=== PATIENT | female | born 1935 | race Caucasian/White ===

== ENCOUNTER → 2017-07-21 06:00 | Outpatient (REF) | payer MEDICARE, SELFPAY | LOC: OLS.WHLTSB 06:00 | PROVIDERS: Visit Provider Family Medicine | DX: Z79.01 Long term (current) use of anticoagulants (principal) ==

== ENCOUNTER → 2017-08-18 05:00 | Outpatient (REF) | payer MEDICARE, OTHER, SELFPAY ==
[2017-08-18 09:37] LABS: Hematocrit 40.9 % (37-47); Hemoglobin 12.9 g/dl (12.0-15.0); Mean Corp Hgb Conc 31.5 g/gl (32-36); Mean Corpuscular Hgb 28.6 pg (27.0-32.0); Mean Corpuscular Volume 90.7 fL (81-99); Mean Platelet Vol. 10.6 fl (6.2-12.0); Platelet Count 162 K/mm3 (150-450); RBC Distribution Width CV 15.5 % (11.6-14.6); RBC Distribution Width SD 51.2 fl (35.1-43.9); Red Blood Count 4.51 M/mm3 (4.2-5.4); White Blood Count 5.5 K/mm3 (4.4-11.0)
[2017-08-18 09:38] LABS: Scan Indicated on CBC? Y/N NO
[2017-08-18 09:39] LABS: Anion Gap 6 (5-15); BUN 17 mg/dL (7-18); BUN/Creat Ratio 27.5 RATIO (10-20); Calcium,Total 8.7 mg/dL (8.5-10.1); Chloride 106 mmol/L (98-107); Creatinine, Serum 0.62 mg/dL (0.55-1.02); EST Glomerular Filtration Rate 98 mL/min (>60); Est Glom Filt Rate - Afr Amer 119 mL/min (>60); Glucose 90 mg/dL (70-110); Potassium 3.9 mmol/L (3.5-5.1); Sodium Level 141 mmol/L (136-145)
[2017-08-18 09:47] LABS: Prothrombin Time (Protime)PT. 34.2 SECONDS (11.7-14.9)
[2017-08-18 10:04] LABS: International Normalized Ratio 3.6
== END ==
LOC: OLS.WHLTSB 05:00
PROVIDERS: Visit Provider Family Medicine
DX: I25.10 Atherosclerotic heart disease of native coronary artery without angina pectoris (principal); I10 Essential (primary) hypertension; Z79.01 Long term (current) use of anticoagulants
CPT/HCPCS: 36415; 80048; 85027; 85610

== ENCOUNTER → 2017-09-06 18:00 | Outpatient (REF) | payer MEDICARE, SELFPAY ==
[2017-09-07 09:52] LABS: Mucous, Urine 0 SEEN /hpf (<or=2+)
[2017-09-07 10:15] LABS: Color, Urine Yellow (Yellow); Glucose, Dipstick Normal (Normal); Ketone-Dipstick Negative (Negative); Leukocyte Esterase-Dipstick 500 /ul (Negative); Nitrite-Dipstick Positive (Negative); Occult Blood-Urine 150 /ul (Negative); Protein-Dipstick 15 mg/dl (Negative); Urine Bilirubin Dipstick Negative (Negative); Urine Clarity Sl. Cloudy (Clear); Urine Urobilinogen Normal (Normal); Urine pH 6.5 (5.0 - 8.0)
[2017-09-07 10:23] LABS: Bacteria 2+ /hpf (None Seen); Red Blood Cells-Urine 10-25 SEEN /hpf (0-5); Squamous Epithelial Cells - UA 5-10 SEEN /hpf (5-10); White Blood Cells 25-50 SEEN /hpf (0-5)
== END ==
LOC: OLS.WHLTSB 18:00
PROVIDERS: Visit Provider Family Medicine
DX: N39.0 Urinary tract infection, site not specified (principal)
CPT/HCPCS: 81001; 87086; 87088; 87186

== ENCOUNTER → 2017-09-13 05:00 | Outpatient (REF) | payer MEDICARE, SELFPAY ==
[2017-09-13 09:08] LABS: International Normalized Ratio 2.6
== END ==
LOC: OLS.WHLTSB 05:00
PROVIDERS: Visit Provider Family Medicine
DX: Z79.01 Long term (current) use of anticoagulants (principal)
CPT/HCPCS: 36415; 85610

== ENCOUNTER → 2017-09-15 05:00 | Outpatient (REF) | payer MEDICARE, SELFPAY ==
[2017-09-15 09:22] LABS: International Normalized Ratio 2.5; Prothrombin Time (Protime)PT. 26.4 SECONDS (11.7-14.9)
== END ==
LOC: OLS.WHLTSB 05:00
PROVIDERS: Visit Provider Family Medicine
DX: Z79.01 Long term (current) use of anticoagulants (principal)
CPT/HCPCS: 36415; 85610

== ENCOUNTER → 2017-10-05 07:00 | Outpatient (REF) | payer MEDICARE, SELFPAY ==
[2017-10-05 09:38] LABS: Color, Urine Yellow (Yellow); Glucose, Dipstick Normal (Normal); Ketone-Dipstick 5 mg/dl (Negative); Leukocyte Esterase-Dipstick 500 /ul (Negative); Nitrite-Dipstick Positive (Negative); Occult Blood-Urine 50 /ul (Negative); Protein-Dipstick 15 mg/dl (Negative); Specific Gravity, Urine 1.025 (1.002-1.030); Urine Bilirubin Dipstick Negative (Negative); Urine Clarity Sl. Cloudy (Clear); Urine Urobilinogen 1 mg/dl (Normal)
== END ==
LOC: OLS.WHLTSB 07:00
PROVIDERS: Visit Provider Family Medicine
DX: R30.0 Dysuria (principal)
CPT/HCPCS: 81002; 87077; 87086; 87088; 87186

== ENCOUNTER → 2017-10-11 05:00 | Outpatient (REF) | payer MEDICARE, SELFPAY ==
[2017-10-11 09:03] LABS: International Normalized Ratio 2.7; Prothrombin Time (Protime)PT. 27.4 SECONDS (11.7-14.9)
== END ==
LOC: OLS.WHLTSB 05:00
PROVIDERS: Visit Provider Family Medicine
DX: Z79.01 Long term (current) use of anticoagulants (principal); Z79.2 Long term (current) use of antibiotics
CPT/HCPCS: 36415; 85610

== ENCOUNTER → 2017-10-13 05:00 | Outpatient (REF) | payer MEDICARE, SELFPAY ==
[2017-10-13 10:35] LABS: International Normalized Ratio 2.5; Prothrombin Time (Protime)PT. 25.7 SECONDS (11.7-14.9)
== END ==
LOC: OLS.WHLTSB 05:00
PROVIDERS: Visit Provider Family Medicine
DX: Z79.01 Long term (current) use of anticoagulants (principal)
CPT/HCPCS: 36415; 85610

== ENCOUNTER → 2017-11-10 05:00 | Outpatient (REF) | payer MEDICARE, SELFPAY ==
[2017-11-10 08:39] LABS: Hematocrit 37.2 % (37-47); Mean Corp Hgb Conc 32.3 g/gl (32-36); Mean Corpuscular Hgb 29.5 pg (27.0-32.0); Mean Corpuscular Volume 91.4 fL (81-99); Mean Platelet Vol. 11.1 fl (6.2-12.0); Platelet Count 140 K/mm3 (150-450); RBC Distribution Width CV 14.9 % (11.6-14.6); RBC Distribution Width SD 49.1 fl (35.1-43.9); Red Blood Count 4.07 M/mm3 (4.2-5.4); White Blood Count 5.2 K/mm3 (4.4-11.0)
[2017-11-10 08:42] LABS: Scan Indicated on CBC? Y/N NO
[2017-11-10 08:48] LABS: Anion Gap 6 (5-15); BUN 13 mg/dL (7-18); BUN/Creat Ratio 18.8 RATIO (10-20); Calcium,Total 8.9 mg/dL (8.5-10.1); Chloride 106 mmol/L (98-107); Creatinine, Serum 0.69 mg/dL (0.55-1.02); EST Glomerular Filtration Rate 86 mL/min (>60); Est Glom Filt Rate - Afr Amer 105 mL/min (>60); Glucose 88 mg/dL (74-106); Potassium 4.1 mmol/L (3.5-5.1); Sodium Level 142 mmol/L (136-145)
[2017-11-10 08:57] LABS: International Normalized Ratio 2.7; Prothrombin Time (Protime)PT. 28.7 SECONDS (11.7-14.9)
== END ==
LOC: OLS.WHLTSB 05:00
PROVIDERS: Visit Provider Family Medicine
DX: I25.10 Atherosclerotic heart disease of native coronary artery without angina pectoris (principal); I10 Essential (primary) hypertension; Z79.01 Long term (current) use of anticoagulants
CPT/HCPCS: 36415; 80048; 85027; 85610

== ENCOUNTER → 2017-12-08 05:00 | Outpatient (REF) | payer MEDICARE, SELFPAY ==
[2017-12-08 08:17] LABS: International Normalized Ratio 2.2; Prothrombin Time (Protime)PT. 24.4 SECONDS (11.7-14.9)
== END ==
LOC: OLS.WHLTSB 05:00
PROVIDERS: Visit Provider Family Medicine
DX: Z79.01 Long term (current) use of anticoagulants (principal); Z95.828 Presence of other vascular implants and grafts
CPT/HCPCS: 36415; 85610

== ENCOUNTER → 2018-01-05 05:00 | Outpatient (REF) | payer MEDICARE, SELFPAY ==
[2018-01-05 08:21] LABS: International Normalized Ratio 2.3
== END ==
LOC: OLS.WHLTSB 05:00
PROVIDERS: Visit Provider Family Medicine
DX: Z79.01 Long term (current) use of anticoagulants (principal)
CPT/HCPCS: 36415; 85610

== ENCOUNTER → 2018-02-02 05:50 | Outpatient (REF) | payer MEDICARE, SELFPAY ==
[2018-02-02 08:03] LABS: Hematocrit 38.3 % (37-47); Mean Corp Hgb Conc 31.3 g/gl (32-36); Mean Corpuscular Hgb 28.8 pg (27.0-32.0); Mean Corpuscular Volume 91.8 fL (81-99); Mean Platelet Vol. 10.8 fl (6.2-12.0); Platelet Count 142 K/mm3 (150-450); RBC Distribution Width CV 15.5 % (11.6-14.6); Red Blood Count 4.17 M/mm3 (4.2-5.4); White Blood Count 5.7 K/mm3 (4.4-11.0)
[2018-02-02 08:14] LABS: Anion Gap 6 (5-15); BUN 15 mg/dL (7-18); BUN/Creat Ratio 21.7 RATIO (10-20); Calcium,Total 8.9 mg/dL (8.5-10.1); Chloride 107 mmol/L (98-107); Creatinine, Serum 0.69 mg/dL (0.55-1.02); EST Glomerular Filtration Rate 87 mL/min (>60); Est Glom Filt Rate - Afr Amer 105 mL/min (>60); Glucose 93 mg/dL (74-106); Potassium 4.8 mmol/L (3.5-5.1); Sodium Level 144 mmol/L (136-145)
[2018-02-02 08:15] LABS: Scan Indicated on CBC? Y/N NO
[2018-02-02 08:46] LABS: International Normalized Ratio 2.3; Prothrombin Time (Protime)PT. 25.1 SECONDS (11.7-14.9)
== END ==
LOC: OLS.WHLTSB 05:50
PROVIDERS: Visit Provider Family Medicine
DX: I25.10 Atherosclerotic heart disease of native coronary artery without angina pectoris (principal); I10 Essential (primary) hypertension; Z95.828 Presence of other vascular implants and grafts; Z79.01 Long term (current) use of anticoagulants
CPT/HCPCS: 36415; 80048; 85027; 85610

== ENCOUNTER → 2018-03-02 05:00 | Outpatient (REF) | payer MEDICARE, SELFPAY ==
[2018-03-02 08:07] LABS: Prothrombin Time (Protime)PT. 22.4 SECONDS (11.7-14.9)
== END ==
LOC: OLS.WHLTSB 05:00
PROVIDERS: Visit Provider Family Medicine
DX: Z79.01 Long term (current) use of anticoagulants (principal)
CPT/HCPCS: 36415; 85610

== ENCOUNTER → 2018-03-30 05:00 | Outpatient (REF) | payer MEDICARE, SELFPAY ==
[2018-03-30 08:10] LABS: International Normalized Ratio 2.5; Prothrombin Time (Protime)PT. 27.1 SECONDS (11.7-14.9)
== END ==
LOC: OLS.WHLTSB 05:00
PROVIDERS: Visit Provider Family Medicine
DX: Z79.01 Long term (current) use of anticoagulants (principal)
CPT/HCPCS: 36415; 85610

== ENCOUNTER → 2018-04-27 05:00 | Outpatient (REF) | payer MEDICARE, SELFPAY ==
[2018-04-27 07:49] LABS: International Normalized Ratio 3.1; Prothrombin Time (Protime)PT. 32.2 SECONDS (11.7-14.9)
== END ==
LOC: OLS.WHLTSB 05:00
PROVIDERS: Visit Provider Family Medicine
DX: Z79.01 Long term (current) use of anticoagulants (principal)
CPT/HCPCS: 36415; 85610

== ENCOUNTER 2018-05-01 05:28 | Emergency (ER) | payer MEDICARE, SELFPAY ==
[2018-05-01 05:30] VITALS: BP 110/57; PULSE 61; RESP 20; TEMP 36.7; O2SAT 98; BMI 21.9
--- NOTE | 2018-05-01 05:39 | EKG12_ITS ---
Test Reason : FALL Blood Pressure : / mmHG Vent. Rate : 066 BPM Atrial Rate : 066 BPM P-R Int : 168 ms QRS Dur : 088 ms QT Int : 422 ms P-R-T Axes : 048 -20 055 degrees QTc Int : 442 ms Normal sinus rhythm ST & T wave abnormality, consider anterior ischemia Abnormal ECG Confirmed by VI QUEVEDO, HELENA ([id number]), publication editor BRANDI GONZALEZ ([id number]) on 05/03/2018 1:23:23 PM Referred By: RAMONE Confirmed By:HELENA LEBRON MD
[2018-05-01] MEDS: Ondansetron 4 MG/2 ML Vial IV (06:20)
[2018-05-01] MEDS: HYDROmorphone 1 MG/ML Syringe IV (06:20)
[2018-05-01 06:33] LABS: Absolute Lymphocyte Count 1.57 X10^3/ul (0.83-4.51); Absolute Neutrophil Count 6.7 X10^3/uL (2.0-7.7); Basophil# 0.02 X10^3/uL; Basophil% 0.2 % (0-1); Eosinophil# 0.08 X10^3/uL; Eosinophils% 0.9 % (0-5); Hemoglobin 13.1 g/dl (12.0-15.0); Lymphocyte # 1.57 X10^3/ul (4.0); Lymphocyte % 17.7 % (19-41); Mean Corpuscular Hgb 29.3 pg (27.0-32.0); Mean Corpuscular Volume 91.7 fL (81-99); Mean Platelet Vol. 10.4 fl (6.2-12.0); Monocyte# 0.43 X10^3/uL; Monocyte% 4.9 % (0-10); Neutrophil # 6.71 X10^3/uL (2.7-7.7); Neutrophil % 75.7 % (47-70); Platelet Count 129 K/mm3 (150-450); RBC Distribution Width CV 15.2 % (11.6-14.6); RBC Distribution Width SD 50.9 fl (35.1-43.9); Red Blood Count 4.47 M/mm3 (4.2-5.4); White Blood Count 8.9 K/mm3 (4.4-11.0)
[2018-05-01 06:36] LABS: POSITIVE COUNT NO; POSITIVE DIFFERENTIAL NO; POSITIVE MORPHOLOGY NO
[2018-05-01 06:57] LABS: Anion Gap 8 (5-15); BUN 21 mg/dL (7-18); BUN/Creat Ratio 27.3 RATIO (10-20); Calcium,Total 9.1 mg/dL (8.5-10.1); Chloride 108 mmol/L (98-107); Creatinine, Serum 0.77 mg/dL (0.55-1.02); EST Glomerular Filtration Rate 77 mL/min (>60); Est Glom Filt Rate - Afr Amer 93 mL/min (>60); Estimated Creatinine Clearance 42.91 ml/min; Glucose 100 mg/dL (74-106); Potassium 4.3 mmol/L (3.5-5.1); Sodium Level 145 mmol/L (136-145)
[2018-05-01 07:32] VITALS: PULSE 95; RESP 16; O2SAT 95
--- NOTE | 2018-05-01 07:35 | ED.VISSUMM ---
- ER Visit Summary Date of Service: 05/01/18 Chief Complaint: Fall History of Present Illness: The patient is a 82 F presenting after fall. Patient was found on the floor of her room at longterm facility. Unknown downtime. She complains of right hip pain. She is unsure if she lost consciousness. At baseline she is only able to transfer with help. She has a history of a previous right hip replacement. History of previous stroke. Physical Examination: Vitals are stable. Patient is afebrile. Alert no acute distress. HEENT exam is unremarkable. No evidence of head trauma Neck is nontender Lungs are clear and equal bilaterally. Heart is regular rate and rhythm. Abdomen is soft nontender nondistended. Extremities right lower extremity internally rotated. Painful range of motion. Right hip diffusely tender Skin is warm and dry. Remainder of exam is unremarkable. Emergency Department Course and Treatment: Patient was given Dilaudid, Zofran on arrival. CBC is normal except platelets 129. BUN 21. EKG is sinus rate 66. CT head shows a rounded increased density in the inferior brainstem/medulla is suspicious of an hemorrhagic infarct, although evaluation is limited. Follow-up with CT/MRI exam is recommended at clinically appropriate time. Involutional and chronic ischemic changes of the brain. 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 Right hip xray shows mildly displaced fractures of the anterior and posterior columns of the right acetabulum. Subtle nondisplaced fractures of the right superior and inferior pubic rami. Right hip hemiarthroplasty. INR is 2.9. She is given KCentra IV. Discussed with family, they prefer [facility]. Discussed with [place] for transfer. Disposition: Transfer [facility] Impression: Status post fall, inferior brainstem rounded density suspicious for hemorrhagic infarct, right acetabular fracture, right inferior and superior pubic rami fracture This note was generated with [employer] dictation software. It may contain incorrect words, spelling, and punctuation that were not noted in review of the chart prior to signing ED Disposition - Plan for ED Patient: Chief Complaint: Fall Referrals: Neeraj Alston MD [Primary Care Provider] -
[2018-05-01 07:38] LABS: Mucous, Urine 0 SEEN /hpf (<or=2+); Red Blood Cells-Urine 0 SEEN /hpf (0-5); Squamous Epithelial Cells - UA 0 SEEN /hpf (5-10)
[2018-05-01 07:56] VITALS: BP 110/58; PULSE 93; RESP 24; O2SAT 96
[2018-05-01 07:57] LABS: Color, Urine Yellow (Yellow); Glucose, Dipstick Normal (Normal); Ketone-Dipstick 5 mg/dl (Negative); Leukocyte Esterase-Dipstick 25 /ul (Negative); Nitrite-Dipstick Positive (Negative); Occult Blood-Urine 50 /ul (Negative); Protein-Dipstick 15 mg/dl (Negative); Specific Gravity, Urine 1.025 (1.002-1.030); Urine Bilirubin Dipstick Negative (Negative); Urine Clarity Clear (Clear); Urine Urobilinogen Normal (Normal)
[2018-05-01 07:59] LABS: CPK Total, Creatine Kinase 91 U/L (26-192)
--- NOTE | 2018-05-01 07:59 | ED.RN ---
RESTING IN BED, DENIES PAIN AT THIS TIME. SON AT BEDSIDE. STS PT IS INTERMITTENTLY CONFUSED SINCE HAVING A STROKE 6 YRS AGO. IS A&OX1 AT PRESENT. ABLE TO RAISE BILAT ARMS WITHOUT DRIFT, BUT UNABLE TO DIFFERENTIATE SENSATION FROM ONE SIDE TO THE OTHER. AWAITING RESULTS AT PRESENT.
[2018-05-01 08:09] LABS: International Normalized Ratio 2.9; Prothrombin Time (Protime)PT. 30.4 SECONDS (11.7-14.9)
[2018-05-01 08:10] LABS: Bacteria 2+ /hpf (None Seen); White Blood Cells 0-5 SEEN /hpf (0-5)
[2018-05-01 08:48] VITALS: BP 96/54; PULSE 98; RESP 32; O2SAT 94
[2018-05-01 09:15] VITALS: BP 99/74; PULSE 92; RESP 20; O2SAT 95
[2018-05-01 09:30] VITALS: BP 90/51; PULSE 95; RESP 22; O2SAT 95
== END 2018-05-01 09:54 | disposition short-term general hospital (02) ==
LOC: ED 07:02
PROVIDERS: Emergency Provider Emergency Medicine; Family Provider Family Medicine; PCP Family Medicine
DX: S32.431A Displaced fracture of anterior column [iliopubic] of right acetabulum, initial encounter for closed fracture (principal); S32.441A Displaced fracture of posterior column [ilioischial] of right acetabulum, initial encounter for closed fracture; S32.591A Other specified fracture of right pubis, initial encounter for closed fracture; W19.XXXA Unspecified fall, initial encounter; Y93.9 Activity, unspecified; Y92.122 Bedroom in nursing home as the place of occurrence of the external cause; Y99.9 Unspecified external cause status; R93.0 Abnormal findings on diagnostic imaging of skull and head, not elsewhere classified; I25.10 Atherosclerotic heart disease of native coronary artery without angina pectoris; M06.9 Rheumatoid arthritis, unspecified; F03.90 Unspecified dementia, unspecified severity, without behavioral disturbance, psychotic disturbance, mood disturbance, and anxiety; Z79.01 Long term (current) use of anticoagulants; Z79.82 Long term (current) use of aspirin; Z79.899 Other long term (current) drug therapy; Z86.73 Personal history of transient ischemic attack (TIA), and cerebral infarction without residual deficits; Z96.641 Presence of right artificial hip joint
CPT/HCPCS: 51702; 70450; 73502; 80048; 81001; 82550; 84484; 85025; 85610; 93005; 96365; 96367; 96375; 99285; C9132; J7050; A4216; J2405; J3490

== ENCOUNTER → 2018-07-13 05:00 | Outpatient (REF) | payer MEDICARE, SELFPAY ==
[2018-07-13 08:31] LABS: Hematocrit 40.7 % (37-47); Hemoglobin 12.7 g/dl (12.0-15.0); Mean Corp Hgb Conc 31.2 g/gl (32-36); Mean Corpuscular Hgb 30.5 pg (27.0-32.0); Mean Corpuscular Volume 97.6 fL (81-99); Mean Platelet Vol. 10.7 fl (6.2-12.0); Platelet Count 176 K/mm3 (150-450); RBC Distribution Width SD 52.9 fl (35.1-43.9); Red Blood Count 4.17 M/mm3 (4.2-5.4); White Blood Count 6.1 K/mm3 (4.4-11.0)
[2018-07-13 08:35] LABS: Scan Indicated on CBC? Y/N NO
[2018-07-13 08:45] LABS: Anion Gap 9 (5-15); BUN 19 mg/dL (7-18); BUN/Creat Ratio 29.3 RATIO (10-20); Calcium,Total 9.1 mg/dL (8.5-10.1); Chloride 108 mmol/L (98-107); Creatinine, Serum 0.65 mg/dL (0.55-1.02); EST Glomerular Filtration Rate 93 mL/min (>60); Est Glom Filt Rate - Afr Amer 112 mL/min (>60); Glucose 87 mg/dL (74-106); Potassium 4.1 mmol/L (3.5-5.1); Sodium Level 144 mmol/L (136-145)
== END ==
LOC: OLS.WHLCAR 05:00
PROVIDERS: Visit Provider Family Medicine
DX: D64.9 Anemia, unspecified (principal); F03.90 Unspecified dementia, unspecified severity, without behavioral disturbance, psychotic disturbance, mood disturbance, and anxiety; I10 Essential (primary) hypertension
CPT/HCPCS: 36415; 80048; 85027

== ENCOUNTER → 2018-07-29 05:00 | Outpatient (REF) | payer MEDICARE, SELFPAY ==
[2018-07-29 08:39] LABS: International Normalized Ratio 2.7; Prothrombin Time (Protime)PT. 29.2 SECONDS (11.7-14.9)
== END ==
LOC: OLS.WHLCAR 05:00
PROVIDERS: Visit Provider Family Medicine
DX: D64.9 Anemia, unspecified (principal); I10 Essential (primary) hypertension; F03.90 Unspecified dementia, unspecified severity, without behavioral disturbance, psychotic disturbance, mood disturbance, and anxiety; Z79.01 Long term (current) use of anticoagulants
CPT/HCPCS: 36415; 85610

== ENCOUNTER → 2018-08-12 05:00 | Outpatient (REF) | payer MEDICARE, SELFPAY ==
[2018-08-12 07:18] LABS: Hematocrit 35.8 % (37-47); Hemoglobin 11.2 g/dl (12.0-15.0); Mean Corp Hgb Conc 31.3 g/gl (32-36); Mean Platelet Vol. 10.3 fl (6.2-12.0); Platelet Count 161 K/mm3 (150-450); RBC Distribution Width CV 14.6 % (11.6-14.6); RBC Distribution Width SD 48.9 fl (35.1-43.9); Red Blood Count 3.73 M/mm3 (4.2-5.4); White Blood Count 5.1 K/mm3 (4.4-11.0)
[2018-08-12 07:25] LABS: Scan Indicated on CBC? Y/N NO
[2018-08-12 07:31] LABS: Anion Gap 8 (5-15); BUN 19 mg/dL (7-18); BUN/Creat Ratio 30.9 RATIO (10-20); Calcium,Total 8.6 mg/dL (8.5-10.1); Chloride 108 mmol/L (98-107); Cholesterol 127 mg/dL (200); Creatinine, Serum 0.62 mg/dL (0.55-1.02); EST Glomerular Filtration Rate 99 mL/min (>60); Est Glom Filt Rate - Afr Amer 120 mL/min (>60); Glucose 99 mg/dL (74-106); High Density Lipoprotein 50 mg/dL; Potassium 3.6 mmol/L (3.5-5.1); Sodium Level 142 mmol/L (136-145); Triglycerides 121 mg/dL; Very Low Density Lipoprotein 24 mg/dL (5-40)
== END ==
LOC: OLS.WHLCAR 05:00
PROVIDERS: Visit Provider Family Medicine
DX: D64.9 Anemia, unspecified (principal); F03.90 Unspecified dementia, unspecified severity, without behavioral disturbance, psychotic disturbance, mood disturbance, and anxiety; I10 Essential (primary) hypertension
CPT/HCPCS: 36415; 80048; 80061; 85027

== ENCOUNTER → 2018-08-26 05:00 | Outpatient (REF) | payer MEDICARE, SELFPAY ==
[2018-08-26 08:42] LABS: International Normalized Ratio 2.3; Prothrombin Time (Protime)PT. 25.6 SECONDS (11.7-14.9)
== END ==
LOC: OLS.WHLCAR 05:00
PROVIDERS: Visit Provider Family Medicine
DX: D64.9 Anemia, unspecified (principal); F03.90 Unspecified dementia, unspecified severity, without behavioral disturbance, psychotic disturbance, mood disturbance, and anxiety; I10 Essential (primary) hypertension
CPT/HCPCS: 36415; 85610

== ENCOUNTER → 2018-09-09 05:00 | Outpatient (REF) | payer MEDICARE, SELFPAY ==
[2018-09-09 09:06] LABS: International Normalized Ratio 2.7; Prothrombin Time (Protime)PT. 28.9 SECONDS (11.7-14.9)
== END ==
LOC: OLS.WHLTSB 05:00
PROVIDERS: Visit Provider Family Medicine
DX: Z79.01 Long term (current) use of anticoagulants (principal)
CPT/HCPCS: 36415; 85610

== ENCOUNTER → 2018-09-23 05:00 | Outpatient (REF) | payer MEDICARE, SELFPAY ==
[2018-09-23 07:17] LABS: International Normalized Ratio 2.6; Prothrombin Time (Protime)PT. 28.3 SECONDS (11.7-14.9)
== END ==
LOC: OLS.WHLTSB 05:00
PROVIDERS: Visit Provider Family Medicine
DX: Z79.01 Long term (current) use of anticoagulants (principal)
CPT/HCPCS: 36415; 85610

== ENCOUNTER → 2018-10-07 05:00 | Outpatient (REF) | payer MEDICARE, SELFPAY ==
[2018-10-07 08:18] LABS: Hematocrit 37.8 % (37-47); Hemoglobin 11.7 g/dl (12.0-15.0); Mean Corpuscular Hgb 29.5 pg (27.0-32.0); Mean Corpuscular Volume 95.5 fL (81-99); Mean Platelet Vol. 10.2 fl (6.2-12.0); Platelet Count 181 K/mm3 (150-450); RBC Distribution Width SD 52.4 fl (35.1-43.9); Red Blood Count 3.96 M/mm3 (4.2-5.4); White Blood Count 6.4 K/mm3 (4.4-11.0)
[2018-10-07 08:23] LABS: Prothrombin Time (Protime)PT. 31.1 SECONDS (11.7-14.9)
[2018-10-07 08:26] LABS: Scan Indicated on CBC? Y/N NO
[2018-10-07 08:28] LABS: Anion Gap 7 (5-15); BUN 13 mg/dL (7-18); Calcium,Total 8.7 mg/dL (8.5-10.1); Chloride 108 mmol/L (98-107); Cholesterol 156 mg/dL (200); Creatinine, Serum 0.62 mg/dL (0.55-1.02); EST Glomerular Filtration Rate 98 mL/min (>60); Est Glom Filt Rate - Afr Amer 119 mL/min (>60); Glucose 89 mg/dL (74-106); High Density Lipoprotein 49 mg/dL; Potassium 4.3 mmol/L (3.5-5.1); Sodium Level 140 mmol/L (136-145); Triglycerides 209 mg/dL; Very Low Density Lipoprotein 42 mg/dL (5-40)
== END ==
LOC: OLS.WHLTSB 05:00
PROVIDERS: Visit Provider Family Medicine
DX: I10 Essential (primary) hypertension (principal); E78.5 Hyperlipidemia, unspecified; I25.10 Atherosclerotic heart disease of native coronary artery without angina pectoris; Z79.01 Long term (current) use of anticoagulants
CPT/HCPCS: 36415; 80048; 80061; 85027; 85610

== ENCOUNTER → 2018-10-21 04:00 | Outpatient (REF) | payer MEDICARE, SELFPAY ==
[2018-10-21 07:17] LABS: International Normalized Ratio 2.5
== END ==
LOC: OLS.WHLTSB 04:00
PROVIDERS: Visit Provider Family Medicine
DX: Z79.01 Long term (current) use of anticoagulants (principal)
CPT/HCPCS: 36415; 85610

== ENCOUNTER → 2018-11-04 05:00 | Outpatient (REF) | payer MEDICARE, SELFPAY ==
[2018-11-04 08:13] LABS: International Normalized Ratio 2.1; Prothrombin Time (Protime)PT. 23.3 SECONDS (11.7-14.9)
== END ==
LOC: OLS.WHLTSB 05:00
PROVIDERS: Visit Provider Family Medicine
DX: Z79.01 Long term (current) use of anticoagulants (principal)
CPT/HCPCS: 36415; 85610

== ENCOUNTER → 2018-11-18 05:00 | Outpatient (REF) | payer MEDICARE, SELFPAY ==
[2018-11-18 07:42] LABS: International Normalized Ratio 2.3; Prothrombin Time (Protime)PT. 25.3 SECONDS (11.7-14.9)
== END ==
LOC: OLS.WHLTSB 05:00
PROVIDERS: Visit Provider Family Medicine
DX: Z79.01 Long term (current) use of anticoagulants (principal)
CPT/HCPCS: 36415; 85610

== ENCOUNTER → 2018-12-02 05:00 | Outpatient (REF) | payer MEDICARE, SELFPAY ==
[2018-12-02 08:22] LABS: International Normalized Ratio 3.2; Prothrombin Time (Protime)PT. 32.7 SECONDS (11.7-14.9)
== END ==
LOC: OLS.WHLTSB 05:00
PROVIDERS: Visit Provider Family Medicine
DX: Z79.01 Long term (current) use of anticoagulants (principal)
CPT/HCPCS: 36415; 85610

== ENCOUNTER → 2018-12-09 05:00 | Outpatient (REF) | payer MEDICARE, SELFPAY ==
[2018-12-09 08:28] LABS: International Normalized Ratio 2.8; Prothrombin Time (Protime)PT. 29.8 SECONDS (11.7-14.9)
== END ==
LOC: OLS.WHLTSB 05:00
PROVIDERS: Visit Provider Family Medicine
DX: Z79.01 Long term (current) use of anticoagulants (principal); Z86.73 Personal history of transient ischemic attack (TIA), and cerebral infarction without residual deficits
CPT/HCPCS: 36415; 85610

== ENCOUNTER → 2018-12-16 05:00 | Outpatient (REF) | payer MEDICARE, SELFPAY ==
[2018-12-16 09:04] LABS: International Normalized Ratio 2.2; Prothrombin Time (Protime)PT. 24.5 SECONDS (11.7-14.9)
== END ==
LOC: OLS.WHLTSB 05:00
PROVIDERS: Visit Provider Family Medicine
DX: Z79.01 Long term (current) use of anticoagulants (principal)
CPT/HCPCS: 36415; 85610

== ENCOUNTER → 2018-12-27 09:30 | Outpatient (REF) | payer MEDICARE, SELFPAY | LOC: OLS.WHLTSB 09:30 | PROVIDERS: Visit Provider Family Medicine | DX: N39.0 Urinary tract infection, site not specified (principal) | CPT/HCPCS: 87077; 87086; 87088; 87186 ==

== ENCOUNTER → 2018-12-30 05:00 | Outpatient (REF) | payer MEDICARE, SELFPAY ==
[2018-12-30 08:42] LABS: Hematocrit 40.4 % (37-47); Hemoglobin 12.8 g/dl (12.0-15.0); Mean Corp Hgb Conc 31.7 g/gl (32-36); Mean Corpuscular Hgb 29.9 pg (27.0-32.0); Mean Corpuscular Volume 94.4 fL (81-99); Mean Platelet Vol. 10.3 fl (6.2-12.0); Platelet Count 184 K/mm3 (150-450); RBC Distribution Width CV 14.8 % (11.6-14.6); RBC Distribution Width SD 50.6 fl (35.1-43.9); Red Blood Count 4.28 M/mm3 (4.2-5.4); White Blood Count 6.2 K/mm3 (4.4-11.0)
[2018-12-30 08:43] LABS: Scan Indicated on CBC? Y/N NO
[2018-12-30 08:51] LABS: International Normalized Ratio 2.2; Prothrombin Time (Protime)PT. 24.3 SECONDS (11.7-14.9)
[2018-12-30 08:57] LABS: Anion Gap 6 (5-15); BUN 21 mg/dL (7-18); BUN/Creat Ratio 30.3 RATIO (10-20); Calcium,Total 9.2 mg/dL (8.5-10.1); Chloride 106 mmol/L (98-107); Creatinine, Serum 0.69 mg/dL (0.55-1.02); EST Glomerular Filtration Rate 86 mL/min (>60); Est Glom Filt Rate - Afr Amer 104 mL/min (>60); Glucose 92 mg/dL (74-106); Sodium Level 142 mmol/L (136-145)
== END ==
LOC: OLS.WHLTSB 05:00
PROVIDERS: Visit Provider Family Medicine
DX: I10 Essential (primary) hypertension (principal); I25.10 Atherosclerotic heart disease of native coronary artery without angina pectoris; Z79.01 Long term (current) use of anticoagulants
CPT/HCPCS: 36415; 80048; 85027; 85610

== ENCOUNTER → 2019-01-02 04:00 | Outpatient (REF) | payer MEDICARE, SELFPAY ==
[2019-01-02 08:38] LABS: International Normalized Ratio 2.3; Prothrombin Time (Protime)PT. 24.9 SECONDS (11.7-14.9)
== END ==
LOC: OLS.WHLTSB 04:00
PROVIDERS: Visit Provider Family Medicine
DX: Z79.01 Long term (current) use of anticoagulants (principal)
CPT/HCPCS: 36415; 85610

== ENCOUNTER → 2019-01-05 | Outpatient (REF) | payer MEDICARE, SELFPAY ==
[2019-01-05 08:29] LABS: International Normalized Ratio 2.4; Prothrombin Time (Protime)PT. 26.2 SECONDS (11.7-14.9)
== END | disposition home or self-care (01) ==
LOC: OLS.WHLTSB 05:00
PROVIDERS: Visit Provider Family Medicine
DX: Z79.01 Long term (current) use of anticoagulants (principal)
CPT/HCPCS: 36415; 85610

== ENCOUNTER → 2019-01-13 05:00 | Outpatient (REF) | payer MEDICARE, SELFPAY ==
[2019-01-13 08:33] LABS: International Normalized Ratio 1.9; Prothrombin Time (Protime)PT. 22.1 SECONDS (11.7-14.9)
== END ==
LOC: OLS.WHLTSB 05:00
PROVIDERS: Visit Provider Family Medicine
DX: Z79.01 Long term (current) use of anticoagulants (principal)
CPT/HCPCS: 36415; 85610

== ENCOUNTER → 2019-01-27 | Outpatient (REF) | payer MEDICARE, SELFPAY ==
[2019-01-27 07:50] LABS: International Normalized Ratio 2.5; Prothrombin Time (Protime)PT. 26.6 SECONDS (11.7-14.9)
== END | disposition home or self-care (01) ==
LOC: OLS.WHLTSB 05:00
PROVIDERS: Visit Provider Family Medicine
DX: Z79.01 Long term (current) use of anticoagulants (principal)
CPT/HCPCS: 36415; 85610

== ENCOUNTER → 2019-02-10 | Outpatient (REF) | payer MEDICARE, SELFPAY ==
[2019-02-10 07:56] LABS: International Normalized Ratio 2.3; Prothrombin Time (Protime)PT. 24.9 SECONDS (11.7-14.9)
== END | disposition home or self-care (01) ==
LOC: OLS.WHLTSB 05:50
PROVIDERS: Visit Provider Family Medicine
DX: Z79.01 Long term (current) use of anticoagulants (principal)
CPT/HCPCS: 36415; 85610

== ENCOUNTER → 2019-02-24 05:35 | Outpatient (REF) | payer MEDICARE, SELFPAY ==
[2019-02-24 07:00] LABS: International Normalized Ratio 2.5; Prothrombin Time (Protime)PT. 26.6 SECONDS (11.7-14.9)
== END ==
LOC: OLS.WHLTSB 05:35
PROVIDERS: Visit Provider Family Medicine
DX: Z79.01 Long term (current) use of anticoagulants (principal)
CPT/HCPCS: 36415; 85610

== ENCOUNTER → 2019-03-10 | Outpatient (REF) | payer MEDICARE, SELFPAY ==
[2019-03-10 07:24] LABS: International Normalized Ratio 2.4; Prothrombin Time (Protime)PT. 25.9 SECONDS (11.7-14.9)
== END | disposition home or self-care (01) ==
LOC: OLS.WHLTSB 05:00
PROVIDERS: Visit Provider Family Medicine
DX: Z79.01 Long term (current) use of anticoagulants (principal)
CPT/HCPCS: 36415; 85610

== ENCOUNTER → 2019-03-24 05:00 | Outpatient (REF) | payer MEDICARE, SELFPAY ==
[2019-03-24 08:36] LABS: International Normalized Ratio 2.2; Prothrombin Time (Protime)PT. 24.1 SECONDS (11.7-14.9)
== END ==
LOC: OLS.WHLTSB 05:00
PROVIDERS: Visit Provider Family Medicine
DX: F03.90 Unspecified dementia, unspecified severity, without behavioral disturbance, psychotic disturbance, mood disturbance, and anxiety (principal); Z87.440 Personal history of urinary (tract) infections; E63.9 Nutritional deficiency, unspecified; Z79.01 Long term (current) use of anticoagulants
CPT/HCPCS: 36415; 85610

== ENCOUNTER → 2019-03-31 05:30 | Outpatient (REF) | payer MEDICARE, SELFPAY ==
[2019-03-31 07:12] LABS: Hematocrit 39.8 % (37-47); Hemoglobin 12.8 g/dL (12.0-15.0); Mean Corp Hgb Conc 32.2 g/dL (32-36); Mean Corpuscular Hgb 30.3 pg (27.0-32.0); Mean Corpuscular Volume 94.3 fL (81-99); Mean Platelet Vol. 10.3 fl (6.2-12.0); Platelet Count 179 K/mm3 (150-450); RBC Distribution Width CV 14.9 % (11.6-14.6); RBC Distribution Width SD 51.7 fl (35.1-43.9); Red Blood Count 4.22 M/mm3 (4.2-5.4); White Blood Count 6.9 K/mm3 (4.4-11.0)
[2019-03-31 07:24] LABS: Anion Gap 7 (5-15); BUN 17 mg/dL (7-18); BUN/Creat Ratio 23.9 RATIO (10-20); Chloride 106 mmol/L (98-107); Cholesterol 151 mg/dL (200); Creatinine, Serum 0.71 mg/dL (0.55-1.02); EST Glomerular Filtration Rate 83 mL/min (>60); Est Glom Filt Rate - Afr Amer 101 mL/min (>60); Glucose 93 mg/dL (74-106); High Density Lipoprotein 59 mg/dL; Potassium 4.3 mmol/L (3.5-5.1); Sodium Level 141 mmol/L (136-145); Triglycerides 147 mg/dL; Very Low Density Lipoprotein 29 mg/dL (5-40)
== END ==
LOC: OLS.WHLTSB 05:30
PROVIDERS: Visit Provider Family Medicine
DX: F03.90 Unspecified dementia, unspecified severity, without behavioral disturbance, psychotic disturbance, mood disturbance, and anxiety (principal); Z87.440 Personal history of urinary (tract) infections; E63.9 Nutritional deficiency, unspecified; Z79.01 Long term (current) use of anticoagulants; I10 Essential (primary) hypertension; E78.5 Hyperlipidemia, unspecified
CPT/HCPCS: 36415; 80048; 80061; 85027

== ENCOUNTER → 2019-04-07 04:30 | Outpatient (REF) | payer MEDICARE, SELFPAY ==
[2019-04-07 11:44] LABS: Prothrombin Time Fingerstick 34.1 SEC (11.9-14.4)
== END ==
LOC: OLS.WHLTSB 04:30
PROVIDERS: Visit Provider Family Medicine
DX: F03.90 Unspecified dementia, unspecified severity, without behavioral disturbance, psychotic disturbance, mood disturbance, and anxiety (principal); Z87.440 Personal history of urinary (tract) infections; E63.9 Nutritional deficiency, unspecified; Z79.01 Long term (current) use of anticoagulants
CPT/HCPCS: 36416; 85610

== ENCOUNTER → 2019-04-21 05:30 | Outpatient (REF) | payer MEDICARE, SELFPAY ==
[2019-04-21 07:22] LABS: Prothrombin Time Fingerstick 32.4 SEC (11.9-14.4)
== END ==
LOC: OLS.WHLTSB 05:30
PROVIDERS: Visit Provider Family Medicine
DX: F03.90 Unspecified dementia, unspecified severity, without behavioral disturbance, psychotic disturbance, mood disturbance, and anxiety (principal); E63.9 Nutritional deficiency, unspecified; Z87.440 Personal history of urinary (tract) infections; Z79.01 Long term (current) use of anticoagulants
CPT/HCPCS: 36416; 85610

== ENCOUNTER → 2019-05-05 05:00 | Outpatient (REF) | payer MEDICARE, SELFPAY ==
[2019-05-05 10:02] LABS: Prothrombin Time Fingerstick 26.9 SEC (11.9-14.4)
== END ==
LOC: OLS.WHLTSB 05:00
PROVIDERS: Visit Provider Family Medicine
DX: F03.90 Unspecified dementia, unspecified severity, without behavioral disturbance, psychotic disturbance, mood disturbance, and anxiety (principal); Z87.440 Personal history of urinary (tract) infections; E63.9 Nutritional deficiency, unspecified; Z79.01 Long term (current) use of anticoagulants
CPT/HCPCS: 36416; 85610

== ENCOUNTER → 2019-05-19 | Outpatient (REF) | payer MEDICARE, SELFPAY ==
[2019-05-19 10:34] LABS: Prothrombin Time Fingerstick 29.6 SEC (11.9-14.4)
== END | disposition home or self-care (01) ==
LOC: OLS.WHLTSB 05:00
PROVIDERS: Visit Provider Family Medicine
DX: Z79.01 Long term (current) use of anticoagulants (principal)
CPT/HCPCS: 36416; 85610

== ENCOUNTER → 2019-06-02 | Outpatient (REF) | payer MEDICARE, SELFPAY ==
[2019-06-02 07:43] LABS: Prothrombin Time (Protime)PT. 31.1 SECONDS (11.7-14.9)
== END | disposition home or self-care (01) ==
LOC: OLS.WHLTSB 06:30
PROVIDERS: Visit Provider Family Medicine
DX: Z79.01 Long term (current) use of anticoagulants (principal)
CPT/HCPCS: 36415; 85610

== ENCOUNTER → 2019-06-16 05:00 | Outpatient (REF) | payer MEDICARE, SELFPAY ==
[2019-06-16 08:21] LABS: Prothrombin Time Fingerstick 30.5 SEC (11.9-14.4)
== END ==
LOC: OLS.WHLTSB 05:00
PROVIDERS: Visit Provider Family Medicine
DX: Z79.01 Long term (current) use of anticoagulants (principal); F03.90 Unspecified dementia, unspecified severity, without behavioral disturbance, psychotic disturbance, mood disturbance, and anxiety; Z87.440 Personal history of urinary (tract) infections; E63.9 Nutritional deficiency, unspecified
CPT/HCPCS: 36416; 85610

== ENCOUNTER → 2019-06-30 05:00 | Outpatient (REF) | payer MEDICARE, SELFPAY ==
[2019-06-30 07:02] LABS: Hematocrit 36.4 % (37-47); Hemoglobin 11.5 g/dL (12.0-15.0); Mean Corp Hgb Conc 31.6 g/dL (32-36); Mean Corpuscular Hgb 29.7 pg (27.0-32.0); Mean Corpuscular Volume 94.1 fL (81-99); Mean Platelet Vol. 10.5 fl (6.2-12.0); Platelet Count 161 K/mm3 (150-450); RBC Distribution Width CV 15.3 % (11.6-14.6); RBC Distribution Width SD 53.2 fl (35.1-43.9); Red Blood Count 3.87 M/mm3 (4.2-5.4)
[2019-06-30 07:06] LABS: Anion Gap 7 (5-15); BUN 21 mg/dL (7-18); BUN/Creat Ratio 32.8 RATIO (10-20); Chloride 107 mmol/L (98-107); Creatinine, Serum 0.64 mg/dL (0.55-1.02); EST Glomerular Filtration Rate 94 mL/min (>60); Est Glom Filt Rate - Afr Amer 114 mL/min (>60); Glucose 96 mg/dL (74-106); Sodium Level 142 mmol/L (136-145)
[2019-06-30 07:13] LABS: Prothrombin Time (Protime)PT. 31.2 SECONDS (11.7-14.9)
== END ==
LOC: OLS.WHLTSB 05:00
PROVIDERS: Visit Provider Family Medicine
DX: I10 Essential (primary) hypertension (principal); I25.10 Atherosclerotic heart disease of native coronary artery without angina pectoris; F03.90 Unspecified dementia, unspecified severity, without behavioral disturbance, psychotic disturbance, mood disturbance, and anxiety; Z87.440 Personal history of urinary (tract) infections; E63.9 Nutritional deficiency, unspecified; Z79.01 Long term (current) use of anticoagulants
CPT/HCPCS: 36415; 80048; 85027; 85610

== ENCOUNTER → 2019-07-14 05:00 | Outpatient (REF) | payer MEDICARE, SELFPAY ==
[2019-07-14 08:15] LABS: Prothrombin Time Fingerstick 27.3 SEC (11.9-14.4)
== END ==
LOC: OLS.WHLTSB 05:00
PROVIDERS: Visit Provider Family Medicine
DX: Z79.01 Long term (current) use of anticoagulants (principal); F03.90 Unspecified dementia, unspecified severity, without behavioral disturbance, psychotic disturbance, mood disturbance, and anxiety; E63.9 Nutritional deficiency, unspecified; Z87.440 Personal history of urinary (tract) infections
CPT/HCPCS: 36416; 85610

== ENCOUNTER → 2019-07-28 05:00 | Outpatient (REF) | payer MEDICARE, SELFPAY ==
[2019-07-28 08:01] LABS: Prothrombin Time Fingerstick 27.9 SEC (11.9-14.4)
== END ==
LOC: OLS.WHLTSB 05:00
PROVIDERS: Visit Provider Family Medicine
DX: F03.90 Unspecified dementia, unspecified severity, without behavioral disturbance, psychotic disturbance, mood disturbance, and anxiety (principal); E63.9 Nutritional deficiency, unspecified; Z87.440 Personal history of urinary (tract) infections; Z79.01 Long term (current) use of anticoagulants
CPT/HCPCS: 36416; 85610

== ENCOUNTER → 2019-08-11 05:00 | Outpatient (REF) | payer MEDICARE, SELFPAY ==
[2019-08-11 06:56] LABS: Prothrombin Time Fingerstick 29.4 SEC (11.9-14.4)
== END ==
LOC: OLS.WHLTSB 05:00
PROVIDERS: Family Provider Family Medicine; PCP Family Medicine; Visit Provider Family Medicine
DX: Z79.01 Long term (current) use of anticoagulants (principal); F03.90 Unspecified dementia, unspecified severity, without behavioral disturbance, psychotic disturbance, mood disturbance, and anxiety; Z87.440 Personal history of urinary (tract) infections; E63.9 Nutritional deficiency, unspecified
CPT/HCPCS: 36416; 85610

== ENCOUNTER → 2019-08-25 05:00 | Outpatient (REF) | payer MEDICARE, SELFPAY ==
[2019-08-25 07:05] LABS: Prothrombin Time Fingerstick 26.1 SEC (11.9-14.4)
== END ==
LOC: OLS.WHLTSB 05:00
PROVIDERS: Family Provider Family Medicine; PCP Family Medicine; Visit Provider Family Medicine
DX: Z79.01 Long term (current) use of anticoagulants (principal); F03.90 Unspecified dementia, unspecified severity, without behavioral disturbance, psychotic disturbance, mood disturbance, and anxiety; Z87.440 Personal history of urinary (tract) infections; E63.9 Nutritional deficiency, unspecified
CPT/HCPCS: 36416; 85610

== ENCOUNTER → 2019-08-30 05:00 | Outpatient (REF) | payer MEDICARE, SELFPAY ==
[2019-08-30 07:52] LABS: Absolute Lymphocyte Count 1.56 X10^3/uL (0.83-4.51); Absolute Neutrophil Count 4.1 X10^3/uL (2.0-7.7); Basophil# 0.03 X10^3/uL; Basophil% 0.5 % (0-1); Eosinophil# 0.13 X10^3/uL; Hematocrit 37.6 % (37-47); Hemoglobin 11.8 g/dL (12.0-15.0); Lymphocyte # 1.56 X10^3/ul (4.0); Lymphocyte % 23.9 % (19-41); Mean Corp Hgb Conc 31.4 g/dL (32-36); Mean Corpuscular Hgb 29.9 pg (27.0-32.0); Mean Corpuscular Volume 95.2 fL (81-99); Mean Platelet Vol. 10.4 fl (6.2-12.0); Monocyte# 0.74 X10^3/uL; Monocyte% 11.3 % (0-10); NRBC Flagged by Analyzer 0 % (0-5); Neutrophil # 4.05 X10^3/uL (2.7-7.7); Platelet Count 161 K/mm3 (150-450); RBC Distribution Width SD 53.1 fl (35.1-43.9); Red Blood Count 3.95 M/mm3 (4.2-5.4); White Blood Count 6.5 K/mm3 (4.4-11.0)
[2019-08-30 08:17] LABS: Anion Gap 5 (5-15); BUN 21 mg/dL (7-18); BUN/Creat Ratio 28.7 RATIO (10-20); Calcium,Total 8.7 mg/dL (8.5-10.1); Chloride 105 mmol/L (98-107); Creatinine, Serum 0.73 mg/dL (0.55-1.02); EST Glomerular Filtration Rate 81 mL/min (>60); Est Glom Filt Rate - Afr Amer 98 mL/min (>60); Glucose 94 mg/dL (74-106); Potassium 4.2 mmol/L (3.5-5.1); Sodium Level 140 mmol/L (136-145); Thyroid Stim Hormone (TSH) 1.62 uIU/mL (0.358-3.74)
== END ==
LOC: OLS.WHLTSB 05:00
PROVIDERS: Family Provider Family Medicine; PCP Family Medicine; Visit Provider Family Medicine
DX: I10 Essential (primary) hypertension (principal); F03.90 Unspecified dementia, unspecified severity, without behavioral disturbance, psychotic disturbance, mood disturbance, and anxiety; Z87.440 Personal history of urinary (tract) infections; E63.9 Nutritional deficiency, unspecified; Z79.01 Long term (current) use of anticoagulants
CPT/HCPCS: 36415; 80048; 84443; 85025

== ENCOUNTER → 2019-09-08 05:00 | Outpatient (REF) | payer MEDICARE, SELFPAY ==
[2019-09-08 07:30] LABS: Prothrombin Time Fingerstick 24.8 SEC (11.9-14.4)
== END ==
LOC: OLS.WHLTSB 05:00
PROVIDERS: PCP Family Medicine; Visit Provider Family Medicine
DX: F03.90 Unspecified dementia, unspecified severity, without behavioral disturbance, psychotic disturbance, mood disturbance, and anxiety (principal); E63.9 Nutritional deficiency, unspecified; Z87.440 Personal history of urinary (tract) infections; Z79.01 Long term (current) use of anticoagulants
CPT/HCPCS: 36416; 85610

== ENCOUNTER → 2019-09-22 05:00 | Outpatient (REF) | payer MEDICARE, SELFPAY ==
[2019-09-22 07:25] LABS: Prothrombin Time Fingerstick 26.6 SEC (11.9-14.4)
== END ==
LOC: OLS.WHL 05:00
PROVIDERS: PCP Family Medicine; Visit Provider Family Medicine
DX: Z79.01 Long term (current) use of anticoagulants (principal); F03.90 Unspecified dementia, unspecified severity, without behavioral disturbance, psychotic disturbance, mood disturbance, and anxiety; E63.9 Nutritional deficiency, unspecified; Z87.440 Personal history of urinary (tract) infections
CPT/HCPCS: 36416; 85610

== ENCOUNTER → 2019-10-06 05:00 | Outpatient (REF) | payer MEDICARE, SELFPAY ==
[2019-10-06 07:56] LABS: Hemoglobin 11.9 g/dL (12.0-15.0); Mean Corp Hgb Conc 31.3 g/dL (32-36); Mean Corpuscular Hgb 29.6 pg (27.0-32.0); Mean Corpuscular Volume 94.5 fL (81-99); Mean Platelet Vol. 10.6 fl (6.2-12.0); Platelet Count 167 K/mm3 (150-450); RBC Distribution Width CV 14.7 % (11.6-14.6); RBC Distribution Width SD 51.2 fl (35.1-43.9); Red Blood Count 4.02 M/mm3 (4.2-5.4); White Blood Count 5.9 K/mm3 (4.4-11.0)
[2019-10-06 08:11] LABS: International Normalized Ratio 2.7; Prothrombin Time (Protime)PT. 28.7 SECONDS (11.7-14.9)
[2019-10-06 08:16] LABS: Anion Gap 3 (5-15); BUN 21 mg/dL (7-18); BUN/Creat Ratio 33.1 RATIO (10-20); Calcium,Total 8.9 mg/dL (8.5-10.1); Chloride 107 mmol/L (98-107); Cholesterol 161 mg/dL (200); Creatinine, Serum 0.64 mg/dL (0.55-1.02); EST Glomerular Filtration Rate 95 mL/min (>60); Est Glom Filt Rate - Afr Amer 115 mL/min (>60); Glucose 92 mg/dL (74-106); High Density Lipoprotein 53 mg/dL; Sodium Level 140 mmol/L (136-145); Triglycerides 166 mg/dL; Very Low Density Lipoprotein 33 mg/dL (5-40)
== END ==
LOC: OLS.WHLTSB 05:00
PROVIDERS: PCP Family Medicine; Visit Provider Family Medicine
DX: E78.5 Hyperlipidemia, unspecified (principal); I10 Essential (primary) hypertension; I25.10 Atherosclerotic heart disease of native coronary artery without angina pectoris; F03.90 Unspecified dementia, unspecified severity, without behavioral disturbance, psychotic disturbance, mood disturbance, and anxiety; E63.9 Nutritional deficiency, unspecified; Z87.440 Personal history of urinary (tract) infections; Z79.01 Long term (current) use of anticoagulants
CPT/HCPCS: 36415; 80048; 80061; 85027; 85610

== ENCOUNTER → 2019-10-20 05:00 | Outpatient (REF) | payer MEDICARE, SELFPAY ==
[2019-10-20 08:26] LABS: Prothrombin Time Fingerstick 42.1 SEC (11.9-14.4)
[2019-10-20 09:04] LABS: International Normalized Ratio 4.3
== END ==
LOC: OLS.WHLTSB 05:00
PROVIDERS: PCP Family Medicine; Visit Provider Family Medicine
DX: F03.90 Unspecified dementia, unspecified severity, without behavioral disturbance, psychotic disturbance, mood disturbance, and anxiety (principal); E63.9 Nutritional deficiency, unspecified; Z87.440 Personal history of urinary (tract) infections; Z79.01 Long term (current) use of anticoagulants
CPT/HCPCS: 36416; 85610

== ENCOUNTER → 2019-10-27 05:00 | Outpatient (REF) | payer MEDICARE, SELFPAY ==
[2019-10-27 08:01] LABS: Prothrombin Time Fingerstick 21.2 SEC (11.9-14.4)
== END ==
LOC: OLS.WHLTSB 05:00
PROVIDERS: PCP Family Medicine; Visit Provider Family Medicine
DX: I63.40 Cerebral infarction due to embolism of unspecified cerebral artery (principal); F03.90 Unspecified dementia, unspecified severity, without behavioral disturbance, psychotic disturbance, mood disturbance, and anxiety; E63.9 Nutritional deficiency, unspecified; Z87.440 Personal history of urinary (tract) infections; Z79.01 Long term (current) use of anticoagulants
CPT/HCPCS: 36416; 85610

== ENCOUNTER → 2019-11-03 05:00 | Outpatient (REF) | payer MEDICARE, SELFPAY ==
[2019-11-03 06:26] LABS: Prothrombin Time Fingerstick 23.9 SEC (11.9-14.4)
== END ==
LOC: OLS.WHLTSB 05:00
PROVIDERS: PCP Family Medicine; Visit Provider Family Medicine
DX: F03.90 Unspecified dementia, unspecified severity, without behavioral disturbance, psychotic disturbance, mood disturbance, and anxiety (principal); E63.9 Nutritional deficiency, unspecified; Z87.440 Personal history of urinary (tract) infections; Z79.01 Long term (current) use of anticoagulants
CPT/HCPCS: 36416; 85610

== ENCOUNTER → 2019-11-17 05:00 | Outpatient (REF) | payer MEDICARE, SELFPAY ==
[2019-11-17 10:16] LABS: Prothrombin Time Fingerstick 25.4 SEC (11.9-14.4)
== END ==
LOC: OLS.WHLTSB 05:00
PROVIDERS: PCP Family Medicine; Visit Provider Family Medicine
DX: F03.90 Unspecified dementia, unspecified severity, without behavioral disturbance, psychotic disturbance, mood disturbance, and anxiety (principal); E63.9 Nutritional deficiency, unspecified; Z87.440 Personal history of urinary (tract) infections; Z79.01 Long term (current) use of anticoagulants
CPT/HCPCS: 36416; 85610

== ENCOUNTER → 2019-12-06 18:00 | Outpatient (REF) | payer MEDICARE, SELFPAY | LOC: OLS.WHLTSB 18:00 | PROVIDERS: PCP Family Medicine; Visit Provider Family Medicine | DX: F03.90 Unspecified dementia, unspecified severity, without behavioral disturbance, psychotic disturbance, mood disturbance, and anxiety (principal); E63.9 Nutritional deficiency, unspecified; R10.32 Left lower quadrant pain; Z87.440 Personal history of urinary (tract) infections; Z79.01 Long term (current) use of anticoagulants | CPT/HCPCS: 87086; 87088 ==

== ENCOUNTER → 2019-12-29 06:00 | Outpatient (REF) | payer MEDICARE, SELFPAY ==
[2019-12-29 07:48] LABS: Hematocrit 35.9 % (37-47); Hemoglobin 11.2 g/dL (12.0-15.0); Mean Corp Hgb Conc 31.2 g/dL (32-36); Mean Corpuscular Hgb 29.2 pg (27.0-32.0); Mean Corpuscular Volume 93.7 fL (81-99); Mean Platelet Vol. 11.1 fl (6.2-12.0); Platelet Count 153 K/mm3 (150-450); RBC Distribution Width CV 15.9 % (11.6-14.6); RBC Distribution Width SD 54.1 fl (35.1-43.9); Red Blood Count 3.83 M/mm3 (4.2-5.4); White Blood Count 6.6 K/mm3 (4.4-11.0)
[2019-12-29 08:03] LABS: Anion Gap 4 (5-15); BUN 16 mg/dL (7-18); Chloride 106 mmol/L (98-107); Creatinine, Serum 0.57 mg/dL (0.55-1.02); EST Glomerular Filtration Rate 107 mL/min (>60); Est Glom Filt Rate - Afr Amer 130 mL/min (>60); Glucose 88 mg/dL (74-106); Potassium 3.8 mmol/L (3.5-5.1); Sodium Level 140 mmol/L (136-145)
[2019-12-29 08:16] LABS: International Normalized Ratio 2.5; Prothrombin Time (Protime)PT. 26.2 SECONDS (11.7-14.9)
== END ==
LOC: OLS.WHLTSB 06:00
PROVIDERS: PCP Family Medicine; Visit Provider Family Medicine
DX: F03.90 Unspecified dementia, unspecified severity, without behavioral disturbance, psychotic disturbance, mood disturbance, and anxiety (principal); E63.9 Nutritional deficiency, unspecified; I10 Essential (primary) hypertension; Z87.440 Personal history of urinary (tract) infections; Z79.01 Long term (current) use of anticoagulants
CPT/HCPCS: 36415; 80048; 85027; 85610

== ENCOUNTER → 2020-01-12 05:00 | Outpatient (REF) | payer MEDICARE, SELFPAY ==
[2020-01-12 07:50] LABS: Prothrombin Time Fingerstick 25.9 SEC (11.9-14.4)
== END ==
LOC: OLS.WHLTSB 05:00
PROVIDERS: PCP Family Medicine; Visit Provider Family Medicine
DX: F03.90 Unspecified dementia, unspecified severity, without behavioral disturbance, psychotic disturbance, mood disturbance, and anxiety (principal); E63.9 Nutritional deficiency, unspecified; Z79.01 Long term (current) use of anticoagulants; Z87.440 Personal history of urinary (tract) infections
CPT/HCPCS: 36416; 85610

== ENCOUNTER → 2020-01-26 05:00 | Outpatient (REF) | payer MEDICARE, SELFPAY ==
[2020-01-26 07:36] LABS: Prothrombin Time Fingerstick 24.9 SEC (11.9-14.4)
== END ==
LOC: OLS.WHLTSB 05:00
PROVIDERS: PCP Family Medicine; Visit Provider Family Medicine
DX: Z79.01 Long term (current) use of anticoagulants (principal); F03.90 Unspecified dementia, unspecified severity, without behavioral disturbance, psychotic disturbance, mood disturbance, and anxiety; E63.9 Nutritional deficiency, unspecified; Z87.440 Personal history of urinary (tract) infections
CPT/HCPCS: 36416; 85610

== ENCOUNTER → 2020-02-09 05:00 | Outpatient (REF) | payer MEDICARE, SELFPAY ==
[2020-02-09 06:16] LABS: Prothrombin Time Fingerstick 24.4 SEC (11.9-14.4)
== END ==
LOC: OLS.WHLTSB 05:00
PROVIDERS: PCP Family Medicine; Referring Provider Family Medicine; Visit Provider Family Medicine
DX: F03.90 Unspecified dementia, unspecified severity, without behavioral disturbance, psychotic disturbance, mood disturbance, and anxiety (principal); E63.9 Nutritional deficiency, unspecified; Z79.01 Long term (current) use of anticoagulants; Z87.440 Personal history of urinary (tract) infections
CPT/HCPCS: 36416; 85610

== ENCOUNTER → 2020-02-22 05:00 | Outpatient (REF) | payer MEDICARE, SELFPAY ==
[2020-02-22 08:25] LABS: Prothrombin Time Fingerstick 28.4 SEC (11.9-14.4)
== END ==
LOC: OLS.WHLTSB 05:00
PROVIDERS: PCP Family Medicine; Referring Provider Family Medicine; Visit Provider Family Medicine
DX: F03.90 Unspecified dementia, unspecified severity, without behavioral disturbance, psychotic disturbance, mood disturbance, and anxiety (principal); R06.02 Shortness of breath; R10.32 Left lower quadrant pain; Z74.1 Need for assistance with personal care; Z87.440 Personal history of urinary (tract) infections; Z79.01 Long term (current) use of anticoagulants
CPT/HCPCS: 36416; 85610

== ENCOUNTER → 2020-03-07 04:30 | Outpatient (REF) | payer MEDICARE, SELFPAY ==
[2020-03-07 08:01] LABS: Prothrombin Time Fingerstick 22.9 SEC (11.9-14.4)
== END ==
LOC: OLS.WHLTSB 04:30
PROVIDERS: PCP Family Medicine; Referring Provider Family Medicine; Visit Provider Family Medicine
DX: F03.90 Unspecified dementia, unspecified severity, without behavioral disturbance, psychotic disturbance, mood disturbance, and anxiety (principal); R06.02 Shortness of breath; R10.32 Left lower quadrant pain; Z79.01 Long term (current) use of anticoagulants; Z74.1 Need for assistance with personal care; Z87.440 Personal history of urinary (tract) infections
CPT/HCPCS: 36416; 85610

== ENCOUNTER → 2020-03-21 05:00 | Outpatient (REF) | payer MEDICARE, SELFPAY ==
[2020-03-21 10:11] LABS: Prothrombin Time Fingerstick 26.1 SEC (11.9-14.4)
== END ==
LOC: OLS.WHLTSB 05:00
PROVIDERS: PCP Family Medicine; Visit Provider Family Medicine
DX: Z79.01 Long term (current) use of anticoagulants (principal); F03.90 Unspecified dementia, unspecified severity, without behavioral disturbance, psychotic disturbance, mood disturbance, and anxiety; R06.02 Shortness of breath; R10.32 Left lower quadrant pain; Z74.1 Need for assistance with personal care; Z87.440 Personal history of urinary (tract) infections
CPT/HCPCS: 36416; 85610

== ENCOUNTER → 2020-04-04 05:00 | Outpatient (REF) | payer MEDICARE, SELFPAY ==
[2020-04-04 08:46] LABS: Prothrombin Time Fingerstick 27.1 SEC (11.9-14.4)
== END ==
LOC: OLS.WHLTSB 05:00
PROVIDERS: PCP Family Medicine; Visit Provider Family Medicine
DX: F03.90 Unspecified dementia, unspecified severity, without behavioral disturbance, psychotic disturbance, mood disturbance, and anxiety (principal); R06.02 Shortness of breath; R10.32 Left lower quadrant pain; Z74.1 Need for assistance with personal care; Z87.440 Personal history of urinary (tract) infections; Z79.01 Long term (current) use of anticoagulants
CPT/HCPCS: 36416; 85610

== ENCOUNTER → 2020-04-05 05:00 | Outpatient (REF) | payer MEDICARE, SELFPAY ==
[2020-04-05 09:04] LABS: Hematocrit 42.6 % (37-47); Hemoglobin 12.8 g/dL (12.0-15.0); Mean Corpuscular Hgb 28.7 pg (27.0-32.0); Mean Corpuscular Volume 95.5 fL (81-99); Mean Platelet Vol. 10.9 fl (6.2-12.0); Platelet Count 213 K/mm3 (150-450); RBC Distribution Width CV 17.1 % (11.6-14.6); RBC Distribution Width SD 59.2 fl (35.1-43.9); Red Blood Count 4.46 M/mm3 (4.2-5.4); White Blood Count 8.6 K/mm3 (4.4-11.0)
[2020-04-05 09:19] LABS: Anion Gap 5 (5-15); BUN 18 mg/dL (7-18); BUN/Creat Ratio 27.3 RATIO (10-20); Calcium,Total 9.5 mg/dL (8.5-10.1); Chloride 106 mmol/L (98-107); Cholesterol 156 mg/dL (200); Creatinine, Serum 0.66 mg/dL (0.55-1.02); EST Glomerular Filtration Rate 91 mL/min (>60); Est Glom Filt Rate - Afr Amer 110 mL/min (>60); Glucose 92 mg/dL (74-106); High Density Lipoprotein 60 mg/dL; Potassium 3.9 mmol/L (3.5-5.1); Sodium Level 141 mmol/L (136-145); Triglycerides 151 mg/dL; Very Low Density Lipoprotein 30 mg/dL (5-40)
== END ==
LOC: OLS.WHLTSB 05:00
PROVIDERS: PCP Family Medicine; Visit Provider Family Medicine
DX: I10 Essential (primary) hypertension (principal); F03.90 Unspecified dementia, unspecified severity, without behavioral disturbance, psychotic disturbance, mood disturbance, and anxiety; R06.02 Shortness of breath; R10.32 Left lower quadrant pain; Z74.1 Need for assistance with personal care; Z87.440 Personal history of urinary (tract) infections
CPT/HCPCS: 36415; 80048; 80061; 85027

== ENCOUNTER → 2020-04-18 05:15 | Outpatient (REF) | payer MEDICARE, SELFPAY ==
[2020-04-18 07:46] LABS: Prothrombin Time Fingerstick 31.3 SEC (11.9-14.4)
== END ==
LOC: OLS.WHLTSB 05:15
PROVIDERS: PCP Family Medicine; Referring Provider Family Medicine; Visit Provider Family Medicine
DX: F03.90 Unspecified dementia, unspecified severity, without behavioral disturbance, psychotic disturbance, mood disturbance, and anxiety (principal); R06.02 Shortness of breath; R10.32 Left lower quadrant pain; Z74.1 Need for assistance with personal care; Z87.440 Personal history of urinary (tract) infections
CPT/HCPCS: 36416; 85610

== ENCOUNTER → 2020-05-02 05:00 | Outpatient (REF) | payer MEDICARE, SELFPAY ==
[2020-05-02 06:36] LABS: Prothrombin Time Fingerstick 25.2 SEC (11.9-14.4)
== END ==
LOC: OLS.WHLTSB 05:00
PROVIDERS: PCP Family Medicine; Visit Provider Family Medicine
DX: F03.90 Unspecified dementia, unspecified severity, without behavioral disturbance, psychotic disturbance, mood disturbance, and anxiety (principal); R06.02 Shortness of breath; R10.32 Left lower quadrant pain; Z74.1 Need for assistance with personal care; Z87.440 Personal history of urinary (tract) infections; Z79.01 Long term (current) use of anticoagulants
CPT/HCPCS: 36416; 85610

== ENCOUNTER → 2020-05-16 05:30 | Outpatient (REF) | payer MEDICARE, SELFPAY ==
[2020-05-16 08:31] LABS: Prothrombin Time Fingerstick 33.7 SEC (11.9-14.4)
== END ==
LOC: OLS.WHLTSB 05:30
PROVIDERS: PCP Family Medicine; Referring Provider Family Medicine; Visit Provider Family Medicine
DX: F03.90 Unspecified dementia, unspecified severity, without behavioral disturbance, psychotic disturbance, mood disturbance, and anxiety (principal); R06.02 Shortness of breath; R10.32 Left lower quadrant pain; Z74.1 Need for assistance with personal care; Z87.440 Personal history of urinary (tract) infections; Z79.01 Long term (current) use of anticoagulants
CPT/HCPCS: 36416; 85610

== ENCOUNTER → 2020-05-30 05:00 | Outpatient (REF) | payer MEDICARE, SELFPAY ==
[2020-05-30 07:25] LABS: Prothrombin Time Fingerstick 33.8 SEC (11.9-14.4)
== END ==
LOC: OLS.WHLTSB 05:00
PROVIDERS: PCP Family Medicine; Referring Provider Family Medicine; Visit Provider Family Medicine
DX: R06.02 Shortness of breath (principal); F03.90 Unspecified dementia, unspecified severity, without behavioral disturbance, psychotic disturbance, mood disturbance, and anxiety; R10.32 Left lower quadrant pain; Z74.1 Need for assistance with personal care; Z87.440 Personal history of urinary (tract) infections; Z79.01 Long term (current) use of anticoagulants
CPT/HCPCS: 36416; 85610

== ENCOUNTER → 2020-06-13 05:00 | Outpatient (REF) | payer MEDICARE, SELFPAY ==
[2020-06-13 06:55] LABS: Prothrombin Time Fingerstick 34.2 SEC (11.9-14.4)
== END ==
LOC: OLS.WHLTSB 05:00
PROVIDERS: PCP Family Medicine; Visit Provider Family Medicine
DX: Z79.01 Long term (current) use of anticoagulants (principal)
CPT/HCPCS: 36416; 85610

== ENCOUNTER → 2020-06-27 05:00 | Outpatient (REF) | payer MEDICARE, SELFPAY ==
[2020-06-27 08:00] LABS: Prothrombin Time Fingerstick 38.8 SEC (11.9-14.4)
== END ==
LOC: OLS.WHLTSB 05:00
PROVIDERS: PCP Family Medicine; Referring Provider Family Medicine; Visit Provider Family Medicine
DX: Z79.01 Long term (current) use of anticoagulants (principal); F03.90 Unspecified dementia, unspecified severity, without behavioral disturbance, psychotic disturbance, mood disturbance, and anxiety; R06.02 Shortness of breath; R10.32 Left lower quadrant pain; Z74.1 Need for assistance with personal care; Z87.440 Personal history of urinary (tract) infections
CPT/HCPCS: 36416; 85610

== ENCOUNTER → 2020-07-05 05:00 | Outpatient (REF) | payer MEDICARE, SELFPAY ==
[2020-07-05 08:27] LABS: Hematocrit 39.1 % (37-47); Mean Corp Hgb Conc 30.7 g/dL (32-36); Mean Corpuscular Hgb 29.4 pg (27.0-32.0); Mean Corpuscular Volume 95.8 fL (81-99); Mean Platelet Vol. 10.7 fl (6.2-12.0); Platelet Count 173 K/mm3 (150-450); RBC Distribution Width CV 16.2 % (11.6-14.6); RBC Distribution Width SD 57.5 fl (35.1-43.9); Red Blood Count 4.08 M/mm3 (4.2-5.4); White Blood Count 6.4 K/mm3 (4.4-11.0)
[2020-07-05 08:38] LABS: Anion Gap 2 (5-15); BUN 15 mg/dL (7-18); BUN/Creat Ratio 24.6 RATIO (10-20); Calcium,Total 9.4 mg/dL (8.5-10.1); Chloride 107 mmol/L (98-107); Creatinine, Serum 0.61 mg/dL (0.55-1.02); EST Glomerular Filtration Rate 99 mL/min (>60); Est Glom Filt Rate - Afr Amer 120 mL/min (>60); Glucose 92 mg/dL (74-106); Potassium 4.1 mmol/L (3.5-5.1); Sodium Level 141 mmol/L (136-145)
== END ==
LOC: OLS.WHLTSB 05:00
PROVIDERS: PCP Family Medicine; Referring Provider Family Medicine; Visit Provider Family Medicine
DX: I10 Essential (primary) hypertension (principal); F03.90 Unspecified dementia, unspecified severity, without behavioral disturbance, psychotic disturbance, mood disturbance, and anxiety; R06.02 Shortness of breath; R10.32 Left lower quadrant pain; Z74.1 Need for assistance with personal care; Z87.440 Personal history of urinary (tract) infections
CPT/HCPCS: 36415; 80048; 85027

== ENCOUNTER → 2020-07-08 04:00 | Outpatient (REF) | payer MEDICARE, SELFPAY ==
[2020-07-08 07:31] LABS: Prothrombin Time Fingerstick 24.1 SEC (11.9-14.4)
== END ==
LOC: OLS.WHLTSB 04:00
PROVIDERS: PCP Family Medicine; Visit Provider Family Medicine
DX: F03.90 Unspecified dementia, unspecified severity, without behavioral disturbance, psychotic disturbance, mood disturbance, and anxiety (principal); R06.00 Dyspnea, unspecified; R06.02 Shortness of breath; R10.32 Left lower quadrant pain; Z87.440 Personal history of urinary (tract) infections; Z79.01 Long term (current) use of anticoagulants; Z74.1 Need for assistance with personal care
CPT/HCPCS: 36416; 85610

== ENCOUNTER → 2020-07-22 05:00 | Outpatient (REF) | payer MEDICARE, SELFPAY | LOC: OLS.WHLTSB 05:00 | PROVIDERS: PCP Family Medicine; Visit Provider Family Medicine | DX: I63.40 Cerebral infarction due to embolism of unspecified cerebral artery (principal); F03.90 Unspecified dementia, unspecified severity, without behavioral disturbance, psychotic disturbance, mood disturbance, and anxiety; R06.00 Dyspnea, unspecified; R06.02 Shortness of breath; R10.32 Left lower quadrant pain; Z74.1 Need for assistance with personal care; Z87.440 Personal history of urinary (tract) infections | CPT/HCPCS: 36416; 85610 ==

== ENCOUNTER → 2020-10-04 05:00 | Outpatient (REF) | payer MEDICARE, SELFPAY ==
[2020-10-04 10:09] LABS: Hematocrit 38.7 % (37-47); Hemoglobin 11.7 g/dL (12.0-15.0); Mean Corp Hgb Conc 30.2 g/dL (32-36); Mean Corpuscular Hgb 29.1 pg (27.0-32.0); Mean Corpuscular Volume 96.3 fL (81-99); Mean Platelet Vol. 11.8 fl (6.2-12.0); Platelet Count 130 K/mm3 (150-450); RBC Distribution Width CV 15.2 % (11.6-14.6); RBC Distribution Width SD 53.9 fl (35.1-43.9); Red Blood Count 4.02 M/mm3 (4.2-5.4); White Blood Count 5.2 K/mm3 (4.4-11.0)
[2020-10-04 10:24] LABS: Anion Gap 5 (5-15); BUN 16 mg/dL (7-18); BUN/Creat Ratio 29.7 RATIO (10-20); Calcium,Total 9.4 mg/dL (8.5-10.1); Chloride 103 mmol/L (98-107); Cholesterol 138 mg/dL (200); Creatinine, Serum 0.54 mg/dL (0.55-1.02); EST Glomerular Filtration Rate 115 mL/min (>60); Est Glom Filt Rate - Afr Amer 139 mL/min (>60); Glucose 78 mg/dL (74-106); High Density Lipoprotein 57 mg/dL; Sodium Level 139 mmol/L (136-145); Triglycerides 110 mg/dL; Very Low Density Lipoprotein 22 mg/dL (5-40)
== END ==
LOC: OLS.WHLTSB 05:00
PROVIDERS: PCP Family Medicine; Visit Provider Family Medicine
DX: I10 Essential (primary) hypertension (principal); I25.10 Atherosclerotic heart disease of native coronary artery without angina pectoris; E78.5 Hyperlipidemia, unspecified; F03.90 Unspecified dementia, unspecified severity, without behavioral disturbance, psychotic disturbance, mood disturbance, and anxiety; R06.02 Shortness of breath; R10.32 Left lower quadrant pain; Z74.1 Need for assistance with personal care; Z87.440 Personal history of urinary (tract) infections
CPT/HCPCS: 36415; 80048; 80061; 85027

== ENCOUNTER → 2020-10-09 12:54 | Outpatient (CLI) | payer MEDICARE, SELFPAY ==
--- NOTE | 2020-10-09 18:39 | SP.MBSS_ITS ---
Modified Barium Swallow - Patient Information Study Date: 10/09/20 Study Time: 13:00 Direct Billable Minutes: 75 Total Minutes procedure & reportin Diagnosis: Dysphagia (R13.12) Referring Physician: Neeraj Alston Reason for Referral: The patient is a 85 year old female referred for a modified barium swallow (MBS) study to objectively assess the patients oropharyngeal swallow function under fluoroscopy secondary to concerns for PO intake sufficiency; currently resides at [facility], where she is placed on a pureed textured, nectar thickened liquid diet. Medical History: Prior bilateral thalamic cerebral infarction, right hemiparesis, coronary artery disease, status post coronary artery bypass graft, benign essential hypertension, hyperlipidemia, rheumatoid arthritis, right humeral fracture, right hip fracture, glaucoma, dry eyes, depression - Penetration-Aspiration Scale Penetration-Aspiration Scale: OBJECTIVE ASSESSMENT OF SWALLOW FUNCTION (QUANTITATIVE ? PER TRIAL): PENETRATION / ASPIRATION SCALE (REGAN): 1 = does not enter airway 2 = enters airway/above vocal folds/ejected 3 = enters airway/above vocal folds/not ejected 4 = enters airway/contacts vocal folds/ejected 5 = enters airway/contacts vocal folds/not ejected 6 = enters airway/below vocal folds/ejected 7 = enters airway/below vocal folds/not ejected despite effort 8 = enters airway/below vocal folds/no effort VIDEOFLOROSCOPIC SCALE SCORE (REGAN): Grade I = aspiration of material that has penetrated into the laryngeal vestibule, intact cough reflex Grade II = aspiration < 10 % of the bolus, intact cough reflex Grade III = aspiration of < 10 % of the bolus, reduced cough reflex or aspiration of > 10 % of the bolus, intact cough reflex Grade IV = aspiration of > 10 % of the bolus, reduced cough reflex PENETRATION / ASPIRATION SCALE (SCORE) WITH VIDEOFLOROSCOPIC SCALE SCORE: Thin liquid - 5 mL tsp.: 1 Thin liquids via cup: 8 - Grade III Thin liquids via straw: 2 Thin liquids via straw: 5 [place] thickened liquids via straw: 1 [place] thickened liquids via straw: 2 [place] thickened liquids via straw: 2 [place] thickened liquids via straw: 1 Honey thickened liquids via straw: 1 Honey thickened liquids via straw: 1 Pudding via spoon: 1 Solid textures (08/26 Ai Doone): 1 [place] thickened liquids via straw: 1 - Oral Phase Labial Seal: Interlabial escape, no progression to anterior lip Tongue Control During Bolus Hold: Posterior escape of greater than half of bolus Bolus Preparation/Mastication: Disorganized chewing/mashing with solid pieces of bolus unchewed Bolus Transport/Lingual Motion: Brisk tongue motion Oral Residue: Trace residue lining oral structures - Pharyngeal Phase Initiation of Pharyngeal Swallow: Bolus head in pyriforms Soft Palate Elevation: No bolus between soft palate and pharyngeal wall Laryngeal Elevation: Partial superior movement thyroid cart/partial apprx aryt- epig petiole Anterior Hyoid Excursion: Partial anterior movement Epiglottic Movement: Partial inversion Laryngeal Vestibule Closure at Height of Swallow: Incomplete; narrow column of air/contrast in laryngeal vestibule Pharyngeal Stripping Wave: Present - complete Pharyngoesophageal Segment Opening: Complete distension and complete duration; no obstruction of flow Tongue Base Retraction: Trace column of contrast between tongue base & post. pharyngeal wall Pharyngeal Residue: Collection of residue within or on pharyngeal structures - Diagnosis/Impression Diagnosis: Dysphagia (R13.12) Impression: The patient presents with moderate oropharyngeal dysphagia (DSRS: 4) with grade III SILENT aspiration of thin liquids. Her swallow profile is marked by a rather marked pharyngeal swallow delay / dyssynchrony resulting in prandial penetration of less viscous liquids, with subsequent aspiration of thin liquids. There is intermittent premature posterior bolus loss with both liquids and solids / semisolids complicating pharyngeal synchrony. She demonstrates mild reduction in hyolaryngeal excursion and duration with inconsistent laryngeal vestibule pressure generated to expel penetrated material. She was unable to follow commands to facilitate execution of compensatory measures. Her oral preparatory phase was marked by mastication inefficiency with incomplete bolus breakdown, with small portions of insufficiently masticated solids spilling posteriorly mastication. Intake was complicated by habitual rapid intake of liquid viscosities which overwhelmed the pharyngeal arena, further complicating intake safety. There is a small non-obstructive cricopharyngeal bar located at the C-5 C-6 level with no impact on pharyngoesophageal motility. - Recommendations Comment: DIET TEXTURE RECOMMENDATIONS: pureed textured (IDDSI: 4), mildly thick liquid (IDDSI: 2) diet RECOMMENDED COMPENSATORY STRATEGIES: direct supervision with assistance as needed, reduced bolus volume, reduced rate of intake, seated upright at 90 degrees during PO intake, remain upright for 30-60 minutes post meal (GERD precaution), medications crushed in purees. Need for Skilled Speech Therapy Services: Yes Education Completed: 1. Described result of evaluation., 7. Pt requires further education on strategies & risks., 8. Family/caregivers require further education on strategies & risks. - Image Count: 1,478 - Status Active ST Patient: Not Active
== END ==
PROVIDERS: PCP Family Medicine; Referring Provider Family Medicine; Visit Provider Family Medicine
DX: R13.12 Dysphagia, oropharyngeal phase (principal)
CPT/HCPCS: 74230; 92611

== ENCOUNTER → 2020-10-30 05:00 | Outpatient (REF) | payer MEDICARE, SELFPAY ==
[2020-10-30 07:05] LABS: Prothrombin Time Fingerstick 24.8 SEC (11.9-14.4)
== END ==
LOC: OLS.WHLTSB 05:00
PROVIDERS: PCP Family Medicine; Visit Provider Family Medicine
DX: Z79.01 Long term (current) use of anticoagulants (principal); F03.90 Unspecified dementia, unspecified severity, without behavioral disturbance, psychotic disturbance, mood disturbance, and anxiety; R06.00 Dyspnea, unspecified; R10.32 Left lower quadrant pain; Z74.1 Need for assistance with personal care
CPT/HCPCS: 36416; 85610

== ENCOUNTER → 2020-11-15 05:00 | Outpatient (REF) | payer MEDICARE, SELFPAY ==
[2020-11-15 08:50] LABS: INR Fingerstick 1.8; Prothrombin Time Fingerstick 20.9 SEC (11.9-14.4)
[2021-01-17 06:51] LABS: INR Fingerstick 1.9; Prothrombin Time Fingerstick 21.3 SEC (11.9-14.4)
== END ==
LOC: OLS.WHLTSB 05:00
PROVIDERS: PCP Family Medicine; Visit Provider Family Medicine
DX: I63.40 Cerebral infarction due to embolism of unspecified cerebral artery (principal); F03.90 Unspecified dementia, unspecified severity, without behavioral disturbance, psychotic disturbance, mood disturbance, and anxiety; R06.00 Dyspnea, unspecified; R06.02 Shortness of breath; R10.32 Left lower quadrant pain; Z74.1 Need for assistance with personal care
CPT/HCPCS: 36416; 85610

== ENCOUNTER → 2020-12-13 05:00 | Outpatient (REF) | payer MEDICARE, SELFPAY ==
[2020-12-13 07:16] LABS: INR Fingerstick 1.9; Prothrombin Time Fingerstick 21.9 SEC (11.9-14.4)
== END ==
LOC: OLS.WHLTSB 05:00
PROVIDERS: PCP Family Medicine; Visit Provider Family Medicine
DX: I63.40 Cerebral infarction due to embolism of unspecified cerebral artery (principal); F03.90 Unspecified dementia, unspecified severity, without behavioral disturbance, psychotic disturbance, mood disturbance, and anxiety; R06.00 Dyspnea, unspecified; R06.02 Shortness of breath; R10.32 Left lower quadrant pain; Z74.1 Need for assistance with personal care
CPT/HCPCS: 36416; 85610

== ENCOUNTER → 2021-01-03 05:00 | Outpatient (REF) | payer MEDICARE, SELFPAY ==
[2021-01-03 06:57] LABS: Hematocrit 38.1 % (37-47); Hemoglobin 11.7 g/dL (12.0-15.0); Mean Corp Hgb Conc 30.7 g/dL (32-36); Mean Corpuscular Volume 97.7 fL (81-99); Mean Platelet Vol. 11.8 fl (6.2-12.0); Platelet Count 144 K/mm3 (150-450); RBC Distribution Width CV 15.2 % (11.6-14.6); RBC Distribution Width SD 54.3 fl (35.1-43.9)
[2021-01-03 07:14] LABS: Anion Gap 3 (5-15); BUN 20 mg/dL (7-18); BUN/Creat Ratio 36.2 RATIO (10-20); Calcium,Total 9.1 mg/dL (8.5-10.1); Chloride 107 mmol/L (98-107); Creatinine, Serum 0.55 mg/dL (0.55-1.02); EST Glomerular Filtration Rate 111 mL/min (>60); Est Glom Filt Rate - Afr Amer 135 mL/min (>60); Glucose 86 mg/dL (74-106); Sodium Level 140 mmol/L (136-145)
== END ==
LOC: OLS.WHLTSB 05:00
PROVIDERS: Visit Provider Family Medicine
DX: I10 Essential (primary) hypertension (principal); I25.10 Atherosclerotic heart disease of native coronary artery without angina pectoris; F03.90 Unspecified dementia, unspecified severity, without behavioral disturbance, psychotic disturbance, mood disturbance, and anxiety; R06.02 Shortness of breath; R10.32 Left lower quadrant pain; Z74.1 Need for assistance with personal care; Z87.440 Personal history of urinary (tract) infections
CPT/HCPCS: 36415; 80048; 85027

== ENCOUNTER → 2021-01-17 05:00 | Outpatient (REF) | payer MEDICARE, SELFPAY | LOC: OLS.WHLTSB 05:00 | PROVIDERS: Visit Provider Family Medicine | DX: I63.40 Cerebral infarction due to embolism of unspecified cerebral artery (principal); F03.90 Unspecified dementia, unspecified severity, without behavioral disturbance, psychotic disturbance, mood disturbance, and anxiety; R06.00 Dyspnea, unspecified; R06.02 Shortness of breath; R10.32 Left lower quadrant pain; Z74.1 Need for assistance with personal care ==

== ENCOUNTER → 2021-01-31 05:00 | Outpatient (REF) | payer MEDICARE, SELFPAY ==
[2021-01-31 07:45] LABS: INR Fingerstick 1.3; Prothrombin Time Fingerstick 15.3 SEC (11.9-14.4)
== END ==
LOC: OLS.WHLEAS 05:00
PROVIDERS: Referring Provider Family Medicine; Visit Provider Family Medicine
DX: Z86.73 Personal history of transient ischemic attack (TIA), and cerebral infarction without residual deficits (principal); F03.90 Unspecified dementia, unspecified severity, without behavioral disturbance, psychotic disturbance, mood disturbance, and anxiety; R48.8 Other symbolic dysfunctions; R26.89 Other abnormalities of gait and mobility; R13.12 Dysphagia, oropharyngeal phase; R47.1 Dysarthria and anarthria; G81.91 Hemiplegia, unspecified affecting right dominant side
CPT/HCPCS: 36416; 85610

== ENCOUNTER → 2021-02-10 05:00 | Outpatient (REF) | payer MEDICARE, SELFPAY ==
[2021-02-10 10:56] LABS: INR Fingerstick 1.3
== END ==
LOC: OLS.WHLEAS 05:00
PROVIDERS: Visit Provider Family Medicine
DX: Z86.73 Personal history of transient ischemic attack (TIA), and cerebral infarction without residual deficits (principal); F03.90 Unspecified dementia, unspecified severity, without behavioral disturbance, psychotic disturbance, mood disturbance, and anxiety; R13.12 Dysphagia, oropharyngeal phase; R47.1 Dysarthria and anarthria; G81.91 Hemiplegia, unspecified affecting right dominant side; I10 Essential (primary) hypertension
CPT/HCPCS: 36416; 85610

== ENCOUNTER → 2021-02-28 04:30 | Outpatient (REF) | payer MEDICARE, SELFPAY ==
[2021-02-28 06:45] LABS: INR Fingerstick 1.5; Prothrombin Time Fingerstick 17.6 SEC (11.9-14.4)
== END ==
LOC: OLS.WHLEAS 04:30
PROVIDERS: Visit Provider Family Medicine
DX: F03.90 Unspecified dementia, unspecified severity, without behavioral disturbance, psychotic disturbance, mood disturbance, and anxiety (principal); R13.12 Dysphagia, oropharyngeal phase; R47.1 Dysarthria and anarthria; G81.91 Hemiplegia, unspecified affecting right dominant side; I10 Essential (primary) hypertension; Z86.73 Personal history of transient ischemic attack (TIA), and cerebral infarction without residual deficits
CPT/HCPCS: 36416; 85610

== ENCOUNTER → 2021-03-06 04:00 | Outpatient (REF) | payer MEDICARE, SELFPAY ==
[2021-03-06 08:20] LABS: INR Fingerstick 1.7; Prothrombin Time Fingerstick 19.5 SEC (11.9-14.4)
== END ==
LOC: OLS.WHLEAS 04:00
PROVIDERS: Referring Provider Family Medicine; Visit Provider Family Medicine
DX: L03.012 Cellulitis of left finger (principal); F03.90 Unspecified dementia, unspecified severity, without behavioral disturbance, psychotic disturbance, mood disturbance, and anxiety; R13.12 Dysphagia, oropharyngeal phase; R47.1 Dysarthria and anarthria; G81.91 Hemiplegia, unspecified affecting right dominant side; I10 Essential (primary) hypertension
CPT/HCPCS: 36416; 85610

== ENCOUNTER → 2021-03-24 04:00 | Outpatient (REF) | payer MEDICARE, SELFPAY ==
[2021-03-24 07:16] LABS: Prothrombin Time Fingerstick 23.2 SEC (11.9-14.4)
== END ==
LOC: OLS.WHLEAS 04:00
PROVIDERS: Referring Provider Family Medicine; Visit Provider Family Medicine
DX: F03.90 Unspecified dementia, unspecified severity, without behavioral disturbance, psychotic disturbance, mood disturbance, and anxiety (principal); R48.8 Other symbolic dysfunctions; R26.89 Other abnormalities of gait and mobility; R13.12 Dysphagia, oropharyngeal phase; R47.1 Dysarthria and anarthria; G81.91 Hemiplegia, unspecified affecting right dominant side; Z86.73 Personal history of transient ischemic attack (TIA), and cerebral infarction without residual deficits
CPT/HCPCS: 36416; 85610

== ENCOUNTER → 2021-03-25 05:00 | Outpatient (REF) | payer MEDICARE, SELFPAY ==
[2021-03-25 08:35] LABS: INR Fingerstick 2.4; Prothrombin Time Fingerstick 26.7 SEC (11.9-14.4)
== END ==
LOC: OLS.WHLEAS 05:00
PROVIDERS: Visit Provider Family Medicine
DX: Z86.73 Personal history of transient ischemic attack (TIA), and cerebral infarction without residual deficits (principal); F03.90 Unspecified dementia, unspecified severity, without behavioral disturbance, psychotic disturbance, mood disturbance, and anxiety; R13.12 Dysphagia, oropharyngeal phase; R47.1 Dysarthria and anarthria; G81.91 Hemiplegia, unspecified affecting right dominant side; I10 Essential (primary) hypertension
CPT/HCPCS: 36416; 85610

== ENCOUNTER → 2021-04-01 05:00 | Outpatient (REF) | payer MEDICARE, SELFPAY ==
[2021-04-01 08:41] LABS: INR Fingerstick 3.1; Prothrombin Time Fingerstick 33.8 SEC (11.9-14.4)
== END ==
LOC: OLS.WHLEAS 05:00
PROVIDERS: Referring Provider Family Medicine; Visit Provider Family Medicine
DX: Z86.73 Personal history of transient ischemic attack (TIA), and cerebral infarction without residual deficits (principal); F03.90 Unspecified dementia, unspecified severity, without behavioral disturbance, psychotic disturbance, mood disturbance, and anxiety; R13.12 Dysphagia, oropharyngeal phase; R47.1 Dysarthria and anarthria; G81.91 Hemiplegia, unspecified affecting right dominant side; I10 Essential (primary) hypertension
CPT/HCPCS: 36416; 85610

== ENCOUNTER → 2021-04-04 05:00 | Outpatient (REF) | payer MEDICARE, SELFPAY ==
[2021-04-04 08:37] LABS: Hematocrit 40.8 % (37-47); Hemoglobin 12.7 g/dL (12.0-15.0); Mean Corp Hgb Conc 31.1 g/dL (32-36); Mean Corpuscular Hgb 29.5 pg (27.0-32.0); Mean Corpuscular Volume 94.9 fL (81-99); Mean Platelet Vol. 11.1 fl (6.2-12.0); Platelet Count 193 K/mm3 (150-450); RBC Distribution Width CV 15.9 % (11.6-14.6); RBC Distribution Width SD 55.7 fl (35.1-43.9); White Blood Count 5.9 K/mm3 (4.4-11.0)
[2021-04-04 08:52] LABS: Anion Gap 6 (5-15); BUN 15 mg/dL (7-18); BUN/Creat Ratio 28.6 RATIO (10-20); Calcium,Total 8.9 mg/dL (8.5-10.1); Chloride 105 mmol/L (98-107); Cholesterol 133 mg/dL (200); Creatinine, Serum 0.52 mg/dL (0.55-1.02); EST Glomerular Filtration Rate 118 mL/min (>60); Est Glom Filt Rate - Afr Amer 143 mL/min (>60); Glucose 100 mg/dL (74-106); High Density Lipoprotein 46 mg/dL; Potassium 3.4 mmol/L (3.5-5.1); Sodium Level 141 mmol/L (136-145); Triglycerides 115 mg/dL; Very Low Density Lipoprotein 23 mg/dL (5-40)
== END ==
LOC: OLS.WHLEAS 05:00
PROVIDERS: Visit Provider Family Medicine
DX: I25.10 Atherosclerotic heart disease of native coronary artery without angina pectoris (principal); F03.90 Unspecified dementia, unspecified severity, without behavioral disturbance, psychotic disturbance, mood disturbance, and anxiety; R48.8 Other symbolic dysfunctions; R26.89 Other abnormalities of gait and mobility; R13.12 Dysphagia, oropharyngeal phase; R47.1 Dysarthria and anarthria; G81.91 Hemiplegia, unspecified affecting right dominant side; I10 Essential (primary) hypertension; E78.5 Hyperlipidemia, unspecified
CPT/HCPCS: 36415; 80048; 80061; 85027

== ENCOUNTER → 2021-04-08 05:00 | Outpatient (REF) | payer MEDICARE, SELFPAY ==
[2021-04-08 07:26] LABS: INR Fingerstick 1.7; Prothrombin Time Fingerstick 20.2 SEC (11.9-14.4)
== END ==
LOC: OLS.WHLEAS 05:00
PROVIDERS: Visit Provider Family Medicine
DX: Z86.73 Personal history of transient ischemic attack (TIA), and cerebral infarction without residual deficits (principal); F03.90 Unspecified dementia, unspecified severity, without behavioral disturbance, psychotic disturbance, mood disturbance, and anxiety; R13.12 Dysphagia, oropharyngeal phase; R47.1 Dysarthria and anarthria; G81.91 Hemiplegia, unspecified affecting right dominant side; I10 Essential (primary) hypertension
CPT/HCPCS: 36416; 85610

== ENCOUNTER → 2021-04-15 05:00 | Outpatient (REF) | payer MEDICARE, SELFPAY ==
[2021-04-15 08:10] LABS: INR Fingerstick 1.8; Prothrombin Time Fingerstick 20.3 SEC (11.9-14.4)
== END ==
LOC: OLS.WHLEAS 05:00
PROVIDERS: PCP Family Medicine; Referring Provider Family Medicine; Visit Provider Family Medicine
DX: G81.91 Hemiplegia, unspecified affecting right dominant side (principal); F03.90 Unspecified dementia, unspecified severity, without behavioral disturbance, psychotic disturbance, mood disturbance, and anxiety; R13.12 Dysphagia, oropharyngeal phase; R47.1 Dysarthria and anarthria; I10 Essential (primary) hypertension
CPT/HCPCS: 36416; 85610

== ENCOUNTER → 2021-04-22 05:00 | Outpatient (REF) | payer MEDICARE, SELFPAY ==
[2021-04-22 06:30] LABS: International Normalized Ratio 1.4; Prothrombin Time (Protime)PT. 16.3 SECONDS (11.7-14.9)
[2021-04-22 13:11] LABS: INR Fingerstick 1.2; Prothrombin Time Fingerstick 14.7 SEC (11.9-14.4)
== END ==
LOC: OLS.WHLEAS 05:00
PROVIDERS: PCP Family Medicine; Visit Provider Family Medicine
DX: Z86.73 Personal history of transient ischemic attack (TIA), and cerebral infarction without residual deficits (principal); F03.90 Unspecified dementia, unspecified severity, without behavioral disturbance, psychotic disturbance, mood disturbance, and anxiety; R13.12 Dysphagia, oropharyngeal phase; R47.1 Dysarthria and anarthria; G81.91 Hemiplegia, unspecified affecting right dominant side; I10 Essential (primary) hypertension
CPT/HCPCS: 36416; 85610

== ENCOUNTER → 2021-07-04 05:00 | Outpatient (REF) | payer MEDICARE, SELFPAY ==
[2021-07-04 07:51] LABS: Hematocrit 41.5 % (37-47); Hemoglobin 13.2 g/dL (12.0-15.0); Mean Corp Hgb Conc 31.8 g/dL (32-36); Mean Corpuscular Hgb 30.2 pg (27.0-32.0); Mean Platelet Vol. 13.8 fl (6.2-12.0); POSITIVE COUNT YES; RBC Distribution Width CV 14.9 % (11.6-14.6); RBC Distribution Width SD 52.2 fl (35.1-43.9); Red Blood Count 4.37 M/mm3 (4.2-5.4); White Blood Count 6.7 K/mm3 (4.4-11.0)
[2021-07-04 08:12] LABS: Anion Gap 6 (5-15); BUN 20 mg/dL (7-18); BUN/Creat Ratio 45.8 RATIO (10-20); Calcium,Total 9.3 mg/dL (8.5-10.1); Chloride 106 mmol/L (98-107); Creatinine, Serum 0.44 mg/dL (0.55-1.02); EST Glomerular Filtration Rate 146 mL/min (>60); Est Glom Filt Rate - Afr Amer 176 mL/min (>60); Glucose 93 mg/dL (74-106); Potassium 3.8 mmol/L (3.5-5.1); Sodium Level 140 mmol/L (136-145)
== END ==
LOC: OLS.WHLEAS 05:00
PROVIDERS: PCP Family Medicine; Visit Provider Family Medicine
DX: I25.10 Atherosclerotic heart disease of native coronary artery without angina pectoris (principal); F03.90 Unspecified dementia, unspecified severity, without behavioral disturbance, psychotic disturbance, mood disturbance, and anxiety; R48.8 Other symbolic dysfunctions; R26.89 Other abnormalities of gait and mobility; R13.12 Dysphagia, oropharyngeal phase; R47.1 Dysarthria and anarthria; G81.91 Hemiplegia, unspecified affecting right dominant side
CPT/HCPCS: 36415; 80048; 85027

== ENCOUNTER → 2021-10-03 | Outpatient (REF) | payer MEDICARE, SELFPAY ==
[2021-10-03 07:42] LABS: Hematocrit 42.1 % (37-47); Hemoglobin 13.9 g/dL (12.0-15.0); Mean Corpuscular Hgb 31.9 pg (27.0-32.0); Mean Corpuscular Volume 96.6 fL (81-99); Mean Platelet Vol. 13.1 fl (6.2-12.0); POSITIVE COUNT YES; Platelet Count 109 K/mm3 (150-450); RBC Distribution Width CV 16.3 % (11.6-14.6); RBC Distribution Width SD 58.3 fl (35.1-43.9); Red Blood Count 4.36 M/mm3 (4.2-5.4); White Blood Count 6.7 K/mm3 (4.4-11.0)
[2021-10-03 07:56] LABS: Anion Gap 3 (5-15); BUN 20 mg/dL (7-18); BUN/Creat Ratio 70.4 RATIO (10-20); Calcium,Total 9.1 mg/dL (8.5-10.1); Chloride 108 mmol/L (98-107); Cholesterol 158 mg/dL (200); Creatinine, Serum 0.28 mg/dL (0.55-1.02); EST Glomerular Filtration Rate 239 mL/min (>60); Est Glom Filt Rate - Afr Amer 290 mL/min (>60); Glucose 89 mg/dL (74-106); High Density Lipoprotein 36 mg/dL; Potassium 3.4 mmol/L (3.5-5.1); Sodium Level 142 mmol/L (136-145); Triglycerides 160 mg/dL; Very Low Density Lipoprotein 32 mg/dL (5-40)
== END | disposition home or self-care (01) ==
LOC: OLS.WHLEAS 05:00
PROVIDERS: PCP Family Medicine; Visit Provider Family Medicine
DX: I25.10 Atherosclerotic heart disease of native coronary artery without angina pectoris (principal); G81.91 Hemiplegia, unspecified affecting right dominant side; F03.90 Unspecified dementia, unspecified severity, without behavioral disturbance, psychotic disturbance, mood disturbance, and anxiety; I10 Essential (primary) hypertension; R48.8 Other symbolic dysfunctions; R26.89 Other abnormalities of gait and mobility; R13.12 Dysphagia, oropharyngeal phase; R47.1 Dysarthria and anarthria
CPT/HCPCS: 36415; 80048; 80061; 85027